=== PATIENT | male | born 1945 | race Caucasian/White ===

== ENCOUNTER 2022-11-21 18:50 | Emergency (ER) | payer OTHER, MEDICARE, SELFPAY ==
--- NOTE | ~2022-11-21 | CT_ITS ---
EXAMINATION: CT thoracic lumbar wo con DATE: 11/21/2022 19:31 INDICATION: Back pain. TECHNIQUE: Computed tomography (CT) of the thoracic and lumbar spine was performed without intravenou s contrast. Automated exposure control and iterative reconstruction technique were employed. The dose -length product was 305.25 mGy-cm. COMPARISON: None FINDINGS: CT THORACIC SPINE: There is mild emphysema. There is mild scarring at the lung apices. Calcified juana r and mediastinal lymph nodes are consistent with old granulomatous disease. There is 9 degrees dextr ocurvature of thoracic spine. Vertebral body heights and intervertebral disc heights are normal. Ther e is multilevel mild facet joint osteoarthritis. At T1-T2, there is moderate bilateral facet joint os teoarthritis. No neural foraminal stenosis. At T9-T10 and T11-T12, there is mild central canal stenos is. CT LUMBAR SPINE: There is 12 degrees levoscoliosis of lumbar spine. There is a compression fracture o f L2 with 1/5 loss of height. There is severely decreased disc height from L3-L4 through L5-S1 with e ndplate remodeling. The following disc levels are specifically discussed: L1-L2: The disc is bulging. There is mild bilateral facet joint osteoarthritis. There is mild left ne ural foraminal stenosis. There is no central canal stenosis. L2-L3: The disc is bulging. There is mild bilateral facet joint osteoarthritis. There is mild bilater al neural foraminal stenosis. There is mild central canal stenosis. L3-L4: The disc is bulging. There is severe right and moderate left facet joint osteoarthritis. There is mild bilateral neural foraminal stenosis. There is mild central canal stenosis. L4-L5: The disc is bulging. There is severe bilateral facet joint osteoarthritis. There is moderate b ilateral neural foraminal stenosis. There is mild central canal stenosis. L5-S1: The disc is bulging. There is moderate and severe left facet joint osteoarthritis. There is mo derate bilateral neural foraminal stenosis. There is mild central canal stenosis. IMPRESSION: 1. L2 compression fracture, likely acute or subacute. 2. Mild thoracic spondylosis and severe lumbar spondylosis. Reviewed, dictated and finalized at location A.
[2022-11-21 18:54] VITALS: BP 182/85; PULSE 83; RESP 14; TEMP 36.5; O2SAT 98
--- NOTE | 2022-11-21 19:24 | ED.GENADULT ---
HPI - General Adult General Chief complaint: Back Pain/Injury Stated complaint: BACK PAIN Time Seen by Provider: 11/21/22 18:53 History of Present Illness HPI narrative: 77-year-old male presented the emergency department for evaluation of lower back pain. Patient states that he was attempting to move a stationary bike and had acute onset of lower back pain. Patient denies any associated numbness or weakness. Patient has been taking Hood for pain control without significant improvement. Related Data Allergies Allergy/AdvReac Type Severity Reaction Status Date / Time nkda Allergy Unknown Uncoded 01/09/03 13:42 NA Allergy Uncoded 10/31/08 13:01 NO KNOWN DRUG ALLERGIES Allergy Y Uncoded 01/09/03 14:34 (Class Allergy) Review of Systems Review of Systems: All systems reviewed & are unremarkable except as noted in HPI and below Exam Narrative: APPEARANCE: Well appearing, no pain, no distress, well-nourished. HEAD: normocephalic, atraumatic. EYES: PERRLA/EOMI, conjunctivae clear. NOSE: Normal no drainage NECK: Supple. No adenopathy, no masses. RESPIRATORY: Airway patent, respirations nonlabored. Clear to auscultation bilaterally, no rales, rhonchi, wheezing. CARDIOVASCULAR: Regular rate and rhythm without murmurs rubs or gallops. ABDOMINAL: Soft, nontender, nondistended, normal bowel sounds MUSCULOSKELETAL: Moves all extremities. Strength/ROM intact, No edema, No calf tenderness. NEURO: Alert. Cranial nerves II through XII intact. Grossly intact SKIN: Warm, dry. Normal Color Course Course Emergency Course: 77-year-old male presented the ED for evaluation of back pain. There is a compression fracture of L2 with 1/5 loss of height. No other acute abnormalities. Patient has no neurologic abnormalities. Case was discussed with neurosurgery and they are comfortable with the plan having outpatient follow-up and wearing a back brace. Patient was provided medications for pain control and was educated on the plan for follow-up and treatment for the pain control. Patient was able to ambulate at his baseline prior to discharge. Vital Signs Vital signs: Vital Signs Temperature 97.7 F 11/21/22 18:54 Pulse Rate 83 11/21/22 18:54 Respiratory Rate 14 11/21/22 18:54 Blood Pressure 182/85 H 11/21/22 18:54 Pulse Oximetry 98 05/06/23 18:54 Oxygen Delivery Room Air 11/21/22 18:54 Temperature 97.7 F 11/21/22 18:54 Pulse Rate 68 11/21/22 19:33 Respiratory Rate 17 11/21/22 19:33 Blood Pressure 164/67 H 11/21/22 19:33 Pulse Oximetry 97 11/21/22 19:33 Oxygen Delivery Room Air 11/21/22 18:54 Medical Decision Making Differential Diagnosis Differential Diagnosis: Musculoskeletal back pain, Lumbar compression fracture, thoracic compression fracture Vital Signs Vital Signs: Vital Signs Temperature 97.7 F 11/21/22 18:54 Pulse Rate 83 11/21/22 18:54 Respiratory Rate 14 11/21/22 18:54 Blood Pressure 182/85 H 11/21/22 18:54 Pulse Oximetry 98 11/21/22 18:54 Oxygen Delivery Room Air 11/21/22 18:54 Temperature 97.7 F 11/21/22 18:54 Pulse Rate 68 11/21/22 19:33 Respiratory Rate 17 11/21/22 19:33 Blood Pressure 164/67 H 11/21/22 19:33 Pulse Oximetry 97 11/21/22 19:33 Oxygen Delivery Room Air 11/21/22 18:54 Imaging Data Radiologist's impression: Impressions Thoracic/Lumbar Spine CT 11/21/22 19:36 IMPRESSION: 1. L2 compression fracture, likely acute or subacute. 2. Mild thoracic spondylosis and severe lumbar spondylosis. Discharge Plan Discharge Clinical Impression: Strain of lumbar region Qualifiers: Encounter type: initial encounter Qualified Code(s): S39.012A - Strain of muscle, fascia and tendon of lower back, initial encounter Compression fx, lumbar spine Qualifiers: Encounter type: initial encounter Lumbar vertebra fracture level: L2 Qualified Code(s): S32.020A - Wedge compression fracture of second lumbar v
[2022-11-21] MEDS: CYCLOBENZAPRINE HCL 10 MG TABLET PO (19:31)
[2022-11-21 19:33] VITALS: BP 164/67; PULSE 68; RESP 17; O2SAT 97
--- NOTE | 2022-11-21 21:10 | PC.NURSE ---
Patient ambulated prior to discharge. Patient able to ambulate w/ moderate reported pain. States he uses walker at home
--- NOTE | 2022-11-22 10:44 | PCCCNOTE ---
Phone call received from Gina Do from [place] 72 hour notification line with questions about the ER visit. Gina able to provided identifiers, we do not have [place] for insurance demographics. Provided Gina with requested NPI, Hospital address and ICD-9 codes. Gina provides notification reference [id number]
== END 2022-11-21 21:12 | disposition home or self-care (01) ==
PROVIDERS: Emergency Provider Emergency Medicine
DX: S32.020A Wedge compression fracture of second lumbar vertebra, initial encounter for closed fracture (principal); M47.816 Spondylosis without myelopathy or radiculopathy, lumbar region; M47.814 Spondylosis without myelopathy or radiculopathy, thoracic region; X50.0XXA Overexertion from strenuous movement or load, initial encounter
CPT/HCPCS: 72128; 72131; 99284; A9270

== ENCOUNTER 2023-10-11 13:44 | Inpatient (IN) | payer MEDICARE, OTHER, SELFPAY ==
[2023-10-11] VITALS (8 sets, daily range): BP systolic 143–204; BP diastolic 71–101; PULSE 84–98; RESP 18–20; TEMP 37.4–39.1; O2SAT 93–96
--- NOTE | ~2023-10-11 | CT_ITS ---
EXAMINATION: CT abdomen pelvis wo con DATE: 10/11/2023 17:46 INDICATION: Hematuria TECHNIQUE: Computed tomography (CT) of the abdomen and pelvis was performed without intravenous contr ast. The dose-length product (DLP) was 209.35 mGy-cm. Automated exposure control and iterative recons truction technique were employed. COMPARISON: None FINDINGS: Minimal dependent atelectasis is present in the lung bases. The heart size is normal. There is a 1.5 cm cyst of the liver. The spleen, pancreas, gallbladder, and adrenal glands are normal. The re is a 2 mm nonobstructing stone of the right kidney upper pole. The left kidney is unremarkable. No stones are identified in the ureters or bladder. No hydronephrosis or hydroureter. There is marked e nlargement of the prostate. A large volume of colonic stool is present. Colonic diverticulosis is pre sent without evidence of diverticulitis. No pathologically enlarged abdominal or pelvic lymph nodes a re identified. No free intraperitoneal gas or evidence of bowel obstruction. There is severe lumbar s pondylosis. IMPRESSION: 1. Nonobstructing right nephrolithiasis. 2. Constipation. 3. Prostatomegaly. Reviewed, dictated and finalized at location F.
--- NOTE | ~2023-10-11 | XR_ITS ---
XR knee RT 3V 10/11/2023 16:22 Indication: Right knee pain Procedure: 3 views right knee Comparison: No prior studies for comparison. Findings: Moderate-severe osteoarthritis of the right knee. There is chondrocalcinosis. No significan t joint effusion. No foreign bodies. Impression: 1: Moderate-severe tricompartment osteoarthritis of the right knee. Reviewed, dictated and finalized at location B. Impression: 1: Moderate-severe tricompartment osteoarthritis of the right knee.
--- NOTE | ~2023-10-11 | XR_ITS ---
EXAMINATION: XR knee LT 3V DATE: 10/11/2023 15:15 INDICATION: Left knee pain post fall 4 days prior TECHNIQUE: Anteroposterior, oblique and crosstable lateral views of the left knee were obtained COMPARISON: None. FINDINGS: Alignment is normal. No fracture. Chondral calcinosis at the medial and lateral compartments of the knee. There is at least mild joint space narrowing the medial compartment although joint space narrow ing can be underestimated on nonweightbearing imaging. No joint effusion/layering lipohemarthrosis. S oft tissues are unremarkable. IMPRESSION: 1. No left knee joint effusion or acute osseous or mild. 2. Chondrocalcinosis at the medial lateral compartments with at least mild osteoarthritis in medial c ompartment. Reviewed, dictated and finalized at location A. IMPRESSION: 1. No left knee joint effusion or acute osseous or mild. 2. Chondrocalcinosis at the medial lateral compartments with at least mild oste oarthritis in medial compartment.
--- NOTE | ~2023-10-11 | CT_ITS ---
EXAMINATION: CT brain wo con INDICATION: Head injury COMPARISON: None TECHNIQUE: Standard unenhanced head CT. The dose-length product (DLP) was 681.00 mGy-cm. The mA was a djusted according to patient size. Iterative reconstruction technique was employed. FINDINGS: No acute intraparenchymal hemorrhage. No evidence of mass lesion. No evidence of acute infa rction. There are small lacunar infarcts in the basal ganglia. There is mild periventricular and subc ortical hypodensity probably related to small vessel ischemic disease. There is mild prominence of th e sulci and ventricles related to cerebral atrophy. Intracranial calcified cerebral atherosclerosis i s noted. No extra-axial collections. No mass effect or midline shift. Changes in the globes are likel y from ocular lens surgery. The visualized sinuses and mastoid air cells are well aerated. IMPRESSION: 1. No acute intracranial abnormality. 2. Age related findings. Reviewed, dictated and finalized at location F.
--- NOTE | ~2023-10-11 | CT_ITS ---
EXAMINATION: CT knee LT wo con DATE: 10/11/2023 16:33 INDICATION: Left knee pain post fall 4 days prior. TECHNIQUE: High resolution computed tomography (CT) of the left knee was performed without intravenou s contrast. Additional sagittal and coronal reconstructions were performed. Automated exposure contro l and iterative reconstruction technique were employed. The dose-length product was 457.94 mGy-cm. COMPARISON: Left knee radiographs dated 10/11/2023 FINDINGS: Bone alignment is normal. No fracture. Chondrocalcinosis in all 3 compartments of the knee. There is tricompartmental osteoarthritis with small marginal osteophytes in all 3 compartments of the knee and at least mild joint space narrowing at the medial and patellofemoral compartments. There is no knee joint effusion. There is diffuse muscular atrophy. Abnormal contour to the visualized distal quadrice ps muscle and tendon with attenuation of the central quadriceps tendon but without surrounding soft t issue edema which suggests possible sequela of chronic quadriceps tendon tear. IMPRESSION: 1. Chondrocalcinosis and at least mild tricompartmental osteoarthritis at the left knee. No left knee joint effusion or acute osseous abnormality. 2. Abnormal contour to the distal quadriceps muscle and tendon which suggests possible quadriceps ten don tear but without surrounding soft tissue edema to suggest acute injury. Correlate with clinical h istory. Reviewed, dictated and finalized at location A. IMPRESSION: 1. Chondrocalcinosis and at least mild tricompartmental osteoarthritis at the l eft knee. No left knee joint effusion or acute osseous abnormality. 2. Abnormal contour to the distal quadriceps muscle and tendon which suggests p ossible quadriceps tendon tear but without surrounding soft tissue edema to sug gest acute injury. Correlate with clinical history.
--- NOTE | ~2023-10-11 | CT_ITS ---
EXAMINATION: CT brain wo con DATE: 10/16/2023 15:22 INDICATION: Diplopia. TECHNIQUE: Computed tomography (CT) of the head was performed without intravenous contrast. The mA wa s adjusted according to patient size. Iterative reconstruction technique was employed. The dose-lengt h product was 605.33 mGy-cm. COMPARISON: Head CT 10/11/2023 FINDINGS: There is no intracranial hemorrhage, acute infarction, or abnormal intracranial mass lesion . There is an old infarct in the right basal ganglia and anterior limb right internal capsule. There are scattered areas of low attenuation in the cerebral white matter, which is within normal limits fo r the patient's age. The ventricles are normal in size. There is mucosal thickening in the paranasal sinuses. There is a trace left mastoid effusion. IMPRESSION: 1. 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 Reviewed, dictated and finalized at location A. IMPRESSION: 1. Old infarct involving the right basal ganglia and anterior limb right winter intern al capsule.
--- NOTE | ~2023-10-11 | XR_ITS ---
EXAMINATION: XR lumbar spine 2-3V DATE: 10/12/2023 18:10 INDICATION: Low back pain TECHNIQUE: Anteroposterior and lateral views of the lumbar spine, and cone-down lateral view of the l umbosacral junction were obtained. COMPARISON: CT, 10/11/2023 and 11/21/2022 FINDINGS: There is an approximately compression fracture of L2 with slight worsening. There is severe loss of intervertebral disc space height at L3-4, L4-5, and L5-S1. No acute fracture is identified. There is moderate to severe facet joint osteoarthritis of the mid and lower lumbar spine. Calcified a therosclerosis is noted. There appear to be changes of bilateral inguinal hernia repair. IMPRESSION: 1. Chronic L2 compression fracture with slight worsening. 2. Severe lower lumbar spondylosis. Reviewed, dictated and finalized at location F.
--- NOTE | ~2023-10-11 | US_ITS ---
EXAMINATION: US carotid duplex BI DATE: 10/12/2023 20:45 INDICATION: Transient alteration of awareness TECHNIQUE: Grayscale, color Doppler, and pulsed Doppler images of the cervical carotid arteries were obtained. The degree of vessel stenosis is placed in one of the following categories: normal, <50%, 5 0-69%, >=70% but less than near-occlusion, near-occlusion, or total occlusion. Note that percent sten osis relative to normal distal artery lumen diameter is indirectly measured from velocity measurement s as described by Alexander, et al. Radiology 2003; 229:340-346. COMPARISON: None. FINDINGS: RIGHT: The right common carotid artery (CCA) peak systolic velocity (PSV) is 79 cm/s. The right internal car otid artery (ICA) PSV is 128 cm/s. The right ICA end-diastolic velocity (EDV) is 18 cm/s. The right I CA/CCA PSV ratio is 1.9. Grayscale and color Doppler images yield an estimate of less than 50% diamet er reduction from plaque in the ICA. The external carotid artery (ECA) PSV is 149 cm/s. There is ante grade flow in the right vertebral artery. LEFT: The left CCA PSV is 70 cm/s. The left ICA PSV is 75 cm/s. The left ICA EDV is 17 cm/s. The left ICA/C CA PSV ratio is 1.1. Grayscale and color Doppler images yield an estimate of less than 50% diameter r eduction from plaque in the ICA. The ECA PSV is 80 cm/s. There is antegrade flow in the left vertebra l artery. IMPRESSION: 1. <50% stenosis in the right internal carotid artery. 2. <50% stenosis in the left internal carotid artery. Reviewed, dictated and finalized at location F.
--- NOTE | ~2023-10-11 | CT_ITS ---
EXAMINATION: CT chest abdomen pelvis wo con DATE: 10/16/2023 15:22 INDICATION: Abdominal pain. TECHNIQUE: Computed tomography (CT) of the chest, abdomen, and pelvis was performed without intraveno us contrast. Automated exposure control and iterative reconstruction technique were employed. The dos e-length product was 551.87 mGy-cm. COMPARISON: CT abdomen and pelvis 10/11/2023, thoracic spine CT 11/21/2022 FINDINGS: CHEST CT: There is moderate emphysema. There is mild atelectasis bilaterally. There is chronic scarring in the upper lobes. Calcified pulmonary nodules and calcified hilar and mediastinal lymph nodes are consiste nt with old granulomatous disease. The heart size is normal. No pericardial effusion. There is mild b ilateral gynecomastia. There is mild thoracic spondylosis. There is a chronic compression fracture of T12. ABDOMEN/PELVIS CT: There are cysts in the liver measuring up to 17 mm. The gallbladder is distended. The spleen, pancrea s, adrenal glands, and left kidney are normal. There is a 3 mm stone in right kidney. There is calcif ied atherosclerosis of the aorta and many of the other arteries. There are changes of bilateral herni a repairs. There is diverticulosis of the colon without evidence of diverticulitis. The appendix is n ormal. There are no pathologically enlarged lymph nodes. There is no free intraperitoneal fluid. Ther e is subcutaneous gas in anterior abdominal wall. The prostate is severely enlarged. There is severe lumbar spondylosis. There is a chronic compression fracture of L2. IMPRESSION: 1. Moderate emphysema. 2. Small volume of subcutaneous gas in anterior abdominal wall bilaterally, which may be from injecti ons. 3. Gallbladder distention, new from 10/11/2023, which may be secondary to fasting. Correlate with phys ical exam to exclude acute cholecystitis. Reviewed, dictated and finalized at location A. IMPRESSION: 1. Moderate emphysema. 2. Small volume of subcutaneous gas in anterior abdominal wall bilaterally, whi ch may be from injections. 3. Gallbladder distention, new from 10/11/2023, which may be secondary to fastin g. Correlate with physical exam to exclude acute cholecystitis.
--- NOTE | ~2023-10-11 | US_ITS ---
EXAMINATION: US abdomen limited DATE: 10/18/2023 12:36 INDICATION: Abdominal pain. TECHNIQUE: Multiple grayscale and Doppler ultrasound images of the abdomen were obtained. COMPARISON: CT abdomen and pelvis 10/16/2023 FINDINGS: The visualized portions of the head of the pancreas are normal. There is a 16 mm cyst in th e liver. The gallbladder is distended. No visible gallstones. No gallbladder wall thickening or sonog raphic Russell sign. There is normal flow in main portal vein. The common duct is normal and measures 4 mm. IMPRESSION: 1. Gallbladder distention, which may be secondary to fasting. Reviewed, dictated and finalized at location A.
--- NOTE | 2023-10-11 13:53 | ECG_ITS ---
Measurements Intervals [place] Rate: 90 P: 68 VT: 125 QRS: 104 QRSD: 91 T: 42 QT: 322 QTc: 394 Interpretive Statements SINUS RHYTHM POSSIBLE LEFT ATRIAL ENLARGEMENT INCOMPLETE RIGHT BUNDLE BRANCH BLOCK BORDERLINE ST-T WAVE ABNORMALITY- INFERIOR LEADS BASELINE ARTIFACT- I, III, AVR, AVL, AVF BORDERLINE ECG NO PREVIOUS ECG AVAILABLE FOR COMPARISON Electronically Signed On 10-11-2023 14:03:41 CDT by Chaka Morales D.O.
--- NOTE | 2023-10-11 14:07 | PC.NURSE ---
Pt , Eunice, was called per pt request. She states pt is not on blood thinners and didn't have issues with mobility until this AM. States she will call back with pt allergies.
[2023-10-11 15:36] LABS: Basophils Absolute Auto 0.1 K/mm3 (0.0-0.1); Basophils Percent Auto 0.7 % (0.2-1.2); Eosinophils Absolute Auto 0.1 K/mm3 (0-0.3); Eosinophils Percent Auto 1.1 % (0-4.4); Hematocrit 47.8 % (42.0-52.0); Hemoglobin 15.7 g/dL (14.0-18.0); Immature Granulocyte Absolute 0.07 K/mm3 (0.00-0.031); Immature Granulocyte Percent A 0.8 % (0-0.5); Lymphocytes Absolute Auto 0.94 K/mm3 (0.9-3.2); Lymphocytes Percent Auto 11.2 % (18.3-44.2); Mean Corpuscular HGB Conc 32.8 g/dl (32-36); Mean Corpuscular Hemoglobin 29.6 pg (26-34); Mean Corpuscular Volume 90.2 fl (80-100); Mean Platelet Volume 12.5 fl (7.4-10.4); Monocytes Percent Auto 11.5 % (2.6-8.5); Neutrophils Absolute Auto 6.3 K/mm3 (1.3-6.7); Neutrophils Percent Auto 74.7 % (45.5-73.1); Platelet Count Result 281 k/mm3 (150-375); Red Cell Distribution Width 15.5 % (11.5-14.5); White Blood Count 8.4 K/mm3 (4.5-10.0)
[2023-10-11 15:46] LABS: Alanine Aminotransferase 18 U/L (6-50); Albumin Level 3.9 g/dL (3.5-5.1); Alkaline Phosphatase 109 U/L (38-126); Anion Gap 4 mmol/L (8-16); Aspartate Amino Transferase 24 U/L (17-59); Bilirubin,Total 0.5 mg/dL (0.2-1.3); Blood Urea Nitrogen 20 mg/dL (9-20); Calcium 9.2 mg/dL (8.4-10.2); Carbon Dioxide 26 mmol/L (22-30); Chloride 105 mmol/L (98-107); Estimated CRCL calculation 71 ml/min; Estimated Glomerular Filt Rate > 60; Glucose 103 mg/dL (65-110); Potassium 3.7 mmol/L (3.4-5.0); Sodium 135 mmol/L (137-145)
--- NOTE | 2023-10-11 16:06 | ED.GENADULT ---
HPI - General Adult General Chief complaint: Fall Stated complaint: Fall History of Present Illness HPI narrative: 77-year-old male presents emergency department for evaluation of increased generalized weakness all and sore throat along with some left knee pain. Patient reports that he did have a fall on Wednesday and since Wednesday he has had decreased ability to use his left knee. Related Data Allergies Allergy/AdvReac Type Severity Reaction Status Date / Time cyclobenzaprine Allergy Unknown Verified 10/11/23 14:28 Review of Systems Review of Systems: All systems reviewed & are unremarkable except as noted in HPI and below Exam Narrative: APPEARANCE: Well appearing, no pain, no distress, well-nourished. HEAD: normocephalic, atraumatic. EYES: PERRLA/EOMI, conjunctivae clear. NOSE: Normal no drainage EARS:TMS clear with good light reflex. THROAT: Pharynx clear, no exudate. NECK: Supple. No adenopathy, no masses. RESPIRATORY: Airway patent, respirations nonlabored. Clear to auscultation bilaterally, no rales, rhonchi, wheezing. CARDIOVASCULAR: Regular rate and rhythm without murmurs rubs or gallops. ABDOMINAL: Soft, nontender, nondistended, normal bowel sounds MUSCULOSKELETAL: Disrupted quadriceps tendon on left NEURO: Alert. Cranial nerves II through XII intact. Good gait. Good coordination SKIN: Warm, dry. Normal Color PSYCHIATRIC: Normal affect/mood. Course Course Emergency Course: Patient was admitted for COVID, increased weakness and quadriceps tendon rupture Vital Signs Vital signs: Vital Signs Temperature 102.3 F H 10/11/23 13:43 Pulse Rate 95 10/11/23 13:43 Respiratory Rate 20 10/11/23 13:43 Blood Pressure 204/86 H 10/11/23 13:43 Pulse Oximetry 95 10/11/23 13:43 Oxygen Delivery Room Air 10/11/23 13:43 Temperature 99.3 F 10/11/23 17:09 Pulse Rate 86 10/11/23 19:09 Respiratory Rate 18 10/11/23 19:09 Blood Pressure 143/75 H 10/11/23 19:09 Pulse Oximetry 96 10/11/23 19:09 Oxygen Delivery Room Air 10/11/23 13:43 Medical Decision Making [facility] Narrative Medical decision making narrative: 77-year-old male presents emergency department for evaluation of left knee pain and increased generalized weakness. Patient's x-ray of the left knee showed no fracture dislocation. CT scan did showed suspected disruption the quadriceps tendon. Patient was negative for influenza RSV strep but was positive COVID. Patient did strike his head during the fall the CT head showed no acute intracranial abnormality. CT abdomen and pelvis also showed no acute abnormality. Case was discussed with the hospitalist patient was accepted for admission. Differential Diagnosis Differential Diagnosis: Subdural hematoma, intracranial abnormality, skull fracture, patellar fracture, quadriceps tendon injury, influenza, RSV, COVID, pneumonia Vital Signs Vital Signs: Vital Signs Temperature 102.3 F H 10/11/23 13:43 Pulse Rate 95 10/11/23 13:43 Respiratory Rate 20 10/11/23 13:43 Blood Pressure 204/86 H 10/11/23 13:43 Pulse Oximetry 95 10/11/23 13:43 Oxygen Delivery Room Air 10/11/23 13:43 Temperature 99.3 F 10/11/23 17:09 Pulse Rate 86 10/11/23 19:09 Respiratory Rate 18 10/11/23 19:09 Blood Pressure 143/75 H 10/11/23 19:09 Pulse Oximetry 96 10/11/23 19:09 Oxygen Delivery Room Air 10/11/23 13:43 Lab Data 10/11/23 15:16 10/11/23 15:16 Labs: Lab Results 10/11/23 10/11/23 10/11/23 Range/Units 15:15 15:16 16:06 WBC 8.4 (4.5-10.0) K/mm3 RBC 5.30 (4.6-6.20) M/mm3 Hgb 15.7 (14.0-18.0) g/dL Hct 47.8 (42.0-52.0) % MCV 90.2 (80-100) fl MCH 29.6 (26-34) pg MCHC 32.8 (32-36) g/dl RDW 15.5 H (11.5-14.5) % Plt Count 281 (150-375) k/mm3 MPV 12.5 H (7.4-10.4) fl Immature Gran % (Auto) 0.8 H (0-0.5) % Neut % (Auto) 74.7 H (45.5-73.1) % Lymph % (Auto) 11.2 L (18.
[2023-10-11 16:30] LABS: Bacteria Urine None Seen /hpf; Non Pathogenic Casts 0-2; RBC Urine 51-100 /hpf (0-2); Squamous Epithelial Cell Urine None Seen /hpf (Few); WBC Urine 0-5 /hpf (0-3)
[2023-10-11 16:47] LABS: Strep Group A RT-PCR NOT DETECTED (Negative)
[2023-10-11 16:58] LABS: Influenza A QL RT-PCR Negative (Negative); Influenza B QL RT-PCR Negative (Negative); RSV RNA, RT-PCR Negative (Negative); SARS-CoV-2 RNA PCR Positive (Negative)
[2023-10-11 17:00] LABS: Appearance Urine Clear (Clear); Color Urine Yellow (Yellow)
[2023-10-11 17:01] LABS: Bilirubin Urine Negative (Negative); Blood Urine 2+ (Negative); Glucose Urine UA Negative (Negative); Ketones Urine Negative (Negative); Leukocyte Esterase Ur Negative LEU/UL (Negative); Nitrate Urine Negative (Negative); Protein Urine 1+ mg/dL (Negative)
--- NOTE | 2023-10-11 17:07 | PC.NURSE ---
Pt reports sudden onset of dizziness and N/V. Rn entered room to find patient vomiting. MD made aware. VORB for 4mg zofran IVP stat
[2023-10-11] MEDS: ONDANSETRON INJ 4 MG/2 ML VIAL IV PUSH (17:09)
--- NOTE | 2023-10-11 17:27 | PM.IMHP ---
H&P: HPI History of Present Illness Date/Time: 10/11/23 19:00 Chief Complaint: Weakness, sore throat, left leg pain. Narrative: This is a 77-year-old male smoker who presented to the emergency department for evaluation of weakness, sore throat, and left leg pain. The patient provides the following history. On Wednesday he reports feeling lightheaded and dizzy which caused him to have a syncopal episode. He landed on his left side and hit his head on the ground without initial injuries. He was able to crawl to bed and where he has remained. Not long after the fall he developed pain in his left knee and he is having difficulties bearing weight on that leg due to pain. Overall he feels unwell with sore throat, cough productive of clear phlegm, body aches, fatigue, and generalized malaise. Additionally he reports painless hematuria but he started to pass small amounts of clots today. He has not had a fever to his knowledge. He denies headache, neck ache, sinus congestion, chest pain, pleuritic pain, hemoptysis, abdominal pain, nausea, vomiting, diarrhea, and dysuria. In the ED: Temperature has been as high as 102.3?. Blood pressures have been running high, in the 160s to 180 systolic. SpO2 has been in the mid 90s on room air. Labs were significant for WBC count of 8.4, hemoglobin 15.7, sodium 135, BUN 20, creatinine 0.60. Urine was positive for 1+ protein, 2+ blood, 51 to 100 WBC. He tested positive for SARS-CoV-[address] showed no acute findings. CT of the abdomen pelvis showed nonobstructing right nephrolithiasis and findings of constipation and prostatomegaly. Right knee x-ray showed moderate to severe tricompartment osteoarthritis. Left knee CT showed chondrocalcinosis, mild tricompartmental osteoarthritis, and an abnormal contour are to the distal quadriceps muscle and tendon which suggest possible quadriceps tear. He is being admitted in this setting Review of Systems Review of Systems: Twelve systems were reviewed and are negative except for as per HPI. [facility] Past Medical History Medical History Hypertension Osteoarthritis of knees, bilateral Tobacco dependence Social History Social History Smoking packs per day: 2 Smoking cigarettes per day: 40.0 Years smoked: 50 Smoking pack-years: 100.00 Smoking status: Current every day smoker Tobacco type: cigarettes Alcohol intake: former Do You Feel Safe in your Home?: Yes Lack of Transportation: No Lack of Food: Never True Current Housing: I Have Housing Concerned About Future Housing: No Difficulty Paying Gas/Electric Bills: No Difficulty Paying for Meds: No Currently Unemployed: No Education: High School Diploma/GED Difficulty w/ Childcare or Family Care: No Spiritual care concerns: No Meds Home Medications and Allergies Home Medications Medication Instructions Recorded Confirmed Type hydrocodone 5 mg-acetaminophen 325 1 tablet PO Q8H PRN pain #14 tabs 11/21/22 10/12/23 Rx mg tablet amlodipine 5 mg tablet 5 mg PO DAILY 10/12/23 10/12/23 History gabapentin 400 mg capsule 1,200 mg PO TID 10/12/23 10/12/23 History guaifenesin 200 mg TID 10/12/23 10/12/23 History methocarbamol 500 mg tablet 500 mg PO TID 10/12/23 10/12/23 History misoprostol 200 mcg tablet 200 mcg PO TID 10/12/23 10/12/23 History pantoprazole 40 mg tablet,delayed 40 mg PO QAM 10/12/23 10/12/23 History release theophylline 400 mg 400 mg PO DAILY 10/12/23 10/12/23 History tablet,extended release Allergies Allergy/AdvReac Type Severity Reaction Status Date / Time cyclobenzaprine Allergy Unknown Verified 10/12/23 02:32 Vital Signs Vital Signs - 24 hr 10/11/23 13:43 10/11/23 15:41 10/11/23 15:45 Temperature 102.3 F H 100.8 F H Pulse Rate 95 93 Respiratory Rate 20 20 Blood Pressure 204/86 H 174/71 H Pulse Oximetry 95 95 Oxyge
[2023-10-11 17:54] LABS: Add Urine Microscopic? YES
[2023-10-11 18:17] LABS: Creatine Kinase 95 U/L (55-170)
--- NOTE | 2023-10-11 19:47 | PC.NURSE ---
Pt , Eunice, called for update
[2023-10-12] VITALS (17 sets, daily range): BP systolic 152–185; BP diastolic 65–84; PULSE 73–160; RESP 18–22; TEMP 36.7–37.1; O2SAT 95–98; BMI 18.7
--- NOTE | 2023-10-12 | ECHO_ITS ---
Patient Info Name: Dany Atwood Age: 77 years : 1945 Gender: Male Ht: 68 in Wt: 200 lbs BSA: 2.11 m2 HR: 77 bpm BP: 157 / 73 mmHg Heart Rhythm: Sinus Rhythm Technical Quality: Good Exam Date: 10/12/2023 9:12 AM Exam Location: Echo Lab Patient Status: Outpatient Admit Date: 10/11/2023 Staff Ordering Physician: Joanne Velasco PA-C Business Test Analyst: Bryant Palomino RDCS Attending Provider: Jerel Mcrae MD Referring Physician: Krista BENNETT; Exam Type: CA echo doppler color flow Study Info Indications - syncope, elevated blood pressure Complete two-dimensional, color flow and Doppler transthoracic echocardiogram is performed. Summary 1. Complete two-dimensional, color flow and Doppler transthoracic echocardiogram is performed. 2. Left ventricular chamber dimension is normal. 3. Left ventricular systolic function is normal, estimated at 60-65%. 4. There is mildly increased left ventricular wall thickness. 5. The left ventricular diastolic function is grade I diastolic dysfunction. 6. Right ventricular systolic function is normal. 7. Left atrial chamber dimension is mildly enlarged. 8. Right atrial chamber dimension is mildly enlarged. 9. There is mild tricuspid valve regurgitation. Left Ventricle Left ventricular chamber dimension is normal. Left ventricular systolic function is normal, estimated at 60-65%. There is mildly increased left ventricular wall thickness. The left ventricular diastolic function is grade I diastolic dysfunction. Right Ventricle Right ventricular chamber dimension is normal. Right ventricular systolic function is normal. Left Atria Left atrial chamber dimension is mildly enlarged. Right Atria Right atrial chamber dimension is mildly enlarged. Atrial Septum Intact interatrial septum visualized by color flow imaging. Aortic Valve There is no aortic valve stenosis. There is no aortic valve regurgitation. There is mild aortic valve calcification. Pulmonic Valve The pulmonic valve is not well visualized. Mitral Valve There is trace mitral valve regurgitation. Tricuspid Valve There is mild tricuspid valve regurgitation. Pericardium/Pleural There is no pericardial effusion. Inferior Vena Cava Normal inferior vena cava with >50% collapse upon inspiration consistent with normal right atrial pressure, 3 mmHg. Aorta The aortic root size at the sinus of Valsalva is normal. Left Ventricular Outflow Tract Name Value Normal LVOT 2D LVOT Diameter 1.7 cm LVOT Doppler LVOT Peak Gradient 2 mmHg LVOT Mean Gradient 1 mmHg LVOT VTI 14 cm LVOT VTI/AV VTI Ratio 0.8 LVOT Stroke Volume 31 ml LVOT CO 2.4 l/min LVOT CI 1.1 l/min/m2 Pulmonic Valve Name Value Normal RVOT Doppler RVOT Peak Gradien
[2023-10-12] MEDS: ACETAMINOPHEN 325 MG TABLET 650 MG PO (00:15)
--- NOTE | 2023-10-12 03:48 | ADMGEN ---
This patient, Dany Atwood, was admitted to Medical Room 250-01. Patient/family oriented to hospital policies and general routines including ID bracelet, bed and alarms, visiting hours, pain management, procedures, bathroom and other care routines, personal items, smoking policy, room service/diet, and visiting hours. Information on how to activate the Rapid Response Team has been discussed. Patient/Family are encouraged to report perceived risks to care and to ask questions if they do not understand what they are told or what they should do.
[2023-10-12 05:58] LABS: Basophils Percent Auto 0.3 % (0.2-1.2); Eosinophils Percent Auto 0.1 % (0-4.4); Hematocrit 49.5 % (42.0-52.0); Hemoglobin 15.8 g/dL (14.0-18.0); Immature Granulocyte Absolute 0.08 K/mm3 (0.00-0.031); Immature Granulocyte Percent A 0.9 % (0-0.5); Lymphocytes Absolute Auto 1.75 K/mm3 (0.9-3.2); Lymphocytes Percent Auto 19.2 % (18.3-44.2); Mean Corpuscular HGB Conc 31.9 g/dl (32-36); Mean Corpuscular Hemoglobin 29.1 pg (26-34); Mean Corpuscular Volume 91.2 fl (80-100); Mean Platelet Volume 11.4 fl (7.4-10.4); Monocytes Absolute Auto 1.3 K/mm3 (0.1-0.6); Monocytes Percent Auto 13.7 % (2.6-8.5); Neutrophils Percent Auto 65.8 % (45.5-73.1); Platelet Count Result 232 k/mm3 (150-375); Red Blood Count 5.43 M/mm3 (4.6-6.20); Red Cell Distribution Width 15.6 % (11.5-14.5); White Blood Count 9.1 K/mm3 (4.5-10.0)
[2023-10-12 06:07] LABS: Anion Gap 7 mmol/L (8-16); Blood Urea Nitrogen 15 mg/dL (9-20); Carbon Dioxide 23 mmol/L (22-30); Chloride 106 mmol/L (98-107); Creatine Kinase 89 U/L (55-170); Estimated CRCL calculation 69 ml/min; Estimated Glomerular Filt Rate > 60; Glucose 99 mg/dL (65-110); Magnesium 2.4 mg/dL (1.6-2.3); Potassium 3.8 mmol/L (3.4-5.0); Sodium 136 mmol/L (137-145)
--- NOTE | 2023-10-12 09:25 | WPDURCON ---
Assessment and Plan Assessment and plan (1) Hematuria: Code(s): R31.9 - Hematuria, unspecified Status: Acute Assessment and Plan: Onset 1 day prior to admission. Reports hematuria has resolved at this time. CT abdomen/pelvis without contrast shows nonobstructing right renal stone. No evidence of UTI. No recent instrumentation/catheterization. Continue to monitor urine closely. Will check bladder scan to ensure he is emptying well. No indication for CBI at this time. Consider CT urogram and cystoscopy as an outpatient. (2) BPH (benign prostatic hyperplasia): Code(s): N40.0 - Benign prostatic hyperplasia without lower urinary tract symptoms Status: Acute Assessment and Plan: Awaiting bladder scan to ensure emptying well. Consider addition of tamsulosin; caution given his recent syncope and suspected hypotension. Urology Consult Note HPI Date Seen: 10/12/23 Requesting Physician: Jerel Mcrae MD Primary Care Provider: PHYSICIAN NOT ON STAFF Consult Narrative Narrative: Dany Atwood is a 77 year old male smoker with no prior urologic history who is currently admitted for syncope and is being seen in consultation for evaluation of gross hematuria. Patient states he developed gross hematuria 2 days ago with passage of small clots. He had no precipitating urinary symptoms including dysuria or incomplete emptying. He states that for years he has had a slightly weak stream and some postvoid dribbling, however this has never been bothersome to him. He denies straining to void and denies any prior issues with urinary retention. He has never seen a urologist. On arrival, a CT of his abdomen/pelvis was completed which shows 2 mm nonobstructing right renal stone without hydronephrosis as well as marked enlargement of the prostate. Urinalysis with 51-100 RBC's but no evidence of infection. WBC, hemoglobin, and hematocrit within normal limits. Creatinine stable, 0.6. He was febrile on presentation, however today remains afebrile and vital signs are stable. At the time of my evaluation, he is resting comfortably. States his urine is clear today and free of clots. States he is voiding without difficulty. He denies suprapubic pain or pressure. Review of Systems Review of Systems: All systems reviewed & are unremarkable except as noted in HPI and below PMFSH Past Medical History Medical History Hypertension Osteoarthritis of knees, bilateral Tobacco dependence Social History Social History Smoking packs per day: 2 Smoking cigarettes per day: 40.0 Years smoked: 50 Smoking pack-years: 100.00 Smoking status: Current every day smoker Tobacco type: cigarettes Alcohol intake: former Do You Feel Safe in your Home?: Yes Lack of Transportation: No Lack of Food: Never True Current Housing: I Have Housing Concerned About Future Housing: No Difficulty Paying Gas/Electric Bills: No Difficulty Paying for Meds: No Currently Unemployed: No Education: High School Diploma/GED Difficulty w/ Childcare or Family Care: No Spiritual care concerns: No Meds Home Medications and Allergies Home Medications Medication Instructions Recorded Confirmed Type hydrocodone 5 mg-acetaminophen 325 1 tablet PO Q8H PRN pain #14 tabs 11/21/22 10/12/23 Rx mg tablet amlodipine 5 mg tablet 5 mg PO DAILY 10/12/23 10/12/23 History gabapentin 400 mg capsule 1,200 mg PO TID 10/12/23 10/12/23 History guaifenesin 200 mg TID 10/12/23 10/12/23 History methocarbamol 500 mg tablet 500 mg PO TID 10/12/23 10/12/23 History misoprostol 200 mcg tablet 200 mcg PO TID 10/12/23 10/12/23 History pantoprazole 40 mg tablet,delayed 40 mg PO QAM 10/12/23 10/12/23 History release theophylline 400 mg 400 mg PO DAILY 10/12/23 10/12/23 History tablet,extended release
--- NOTE | 2023-10-12 12:01 | P.PNIM_ITS ---
Progress Note: A&P Assessment and Plan (1) Hematuria: Code(s): R31.9 - Hematuria, unspecified Status: Acute Assessment and Plan: 10/12/2023: * patient reporting hematuria with clots on admission * CT of the abdomen pelvis without contrast showed nonobstructing right renal stone, constipation, BPH * plan for bladder scan to check for urinary retention * urology following and is not recommending any CBI at this time, consider CT urogram and cystoscopy on an outpatient basis (2) Syncope: Code(s): R55 - Syncope and collapse Status: Acute Assessment and Plan: 10/12/2023: * patient reports syncopal episode on Wednesday with fall, he hit his head on the ground without any initial injury * head CT was negative for any acute intracranial process, only showed age- related changes * orthostatic blood pressures Q shift ordered * Blood pressure while lying down was 188/86 with a pulse of 98, pressure while sitting up was 178/101 with a pulse of 96, there was not a blood pressure recorded 4 standing at this time. * bilateral ultrasound carotid duplex ordered * echo ordered (3) COVID: Code(s): U07.1 - COVID-19 Status: Acute Assessment and Plan: 10/12/2023: * positive for COVID on PCR * reporting upper respiratory symptoms of productive cough, fever, body aches, fatigue, sore throat, lightheadedness, dizziness * strep was negative * influenza A and B, RSV were also negative * Currently on room air * start Mucinex, throat lozenge, and Tessalon Perles for supportive measure (4) Osteoarthritis of knees, bilateral: Code(s): M17.0 - Bilateral primary osteoarthritis of knee Status: Acute Assessment and Plan: 10/12/2023: * left knee x-ray showing no left joint effusion, revealed chondrocalcinosis at the medial lateral compartments with at least mild osteoarthritis in medial compartment * right knee x-ray shown moderate to severe tricompartment osteoarthritis * left knee differential diagnosis including gout and septic arthritis * T-max of 102.3 on arrival to the emergency room.He has been unable to move his knee and scan showing chondrocalcinosis and osteoarthritis * will check uric acid level today to check for gout * orthopedic consult (5) Injury of quadriceps tendon: Code(s): S76.109A - Unspecified injury of unspecified quadriceps muscle, fascia and tendon, initial encounter Status: Acute Assessment and Plan: 10/12/2023: * CT scan of the left knee shown chondrocalcinosis and at least mild tricompartmental osteoarthritis of the left knee, no joint effusion, Abnormal contour or to the distal quadriceps muscle and tendon which suggest possible quadriceps tendon tear but without surrounding soft tissue edema to suggest acute injury. * Patient was placed in a knee immobilizer * orthopedic surgeon consulted (6) Generalized weakness: Code(s): R53.1 - Weakness Status: Acute Assessment and Plan: 10/12/2023: * recent fall * orthopedic consult * will order PT and OT as well to evaluate treat after orthopedic evaluation. (7) Hypertension: Code(s): I10 - Essential (primary) hypertension Status: Acute Assessment and Plan: 10/12/2023: * continue amlodipine (8) Chronic back pain: Code(s): M54.9 - Dorsalgia, unspecified; G89.29 - Other chronic pain Status: Acute Assessment and Plan: 10/12/2023: * Will get x-ray of lower back as he states that has been bothering him since the fall and he
--- NOTE | 2023-10-12 12:01 | PM.IMPN ---
Progress Note: A&P Assessment and Plan (1) Hematuria: Code(s): R31.9 - Hematuria, unspecified Status: Acute Assessment and Plan: 10/12/2023: patient reporting hematuria with clots on admission CT of the abdomen pelvis without contrast showed nonobstructing right renal stone, constipation, BPH plan for bladder scan to check for urinary retention urology following and is not recommending any CBI at this time, consider CT urogram and cystoscopy on an outpatient basis (2) Syncope: Code(s): R55 - Syncope and collapse Status: Acute Assessment and Plan: 10/12/2023: patient reports syncopal episode on Wednesday with fall, he hit his head on the ground without any initial injury head CT was negative for any acute intracranial process, only showed age-related changes orthostatic blood pressures Q shift ordered Blood pressure while lying down was 188/86 with a pulse of 98, pressure while sitting up was 178/101 with a pulse of 96, there was not a blood pressure recorded 4 standing at this time. bilateral ultrasound carotid duplex ordered echo ordered (3) COVID: Code(s): U07.1 - COVID-19 Status: Acute Assessment and Plan: 10/12/2023: positive for COVID on PCR reporting upper respiratory symptoms of productive cough, fever, body aches, fatigue, sore throat, lightheadedness, dizziness strep was negative influenza A and B, RSV were also negative Currently on room air start Mucinex, throat lozenge, and Tessalon Perles for supportive measure (4) Osteoarthritis of knees, bilateral: Code(s): M17.0 - Bilateral primary osteoarthritis of knee Status: Acute Assessment and Plan: 10/12/2023: left knee x-ray showing no left joint effusion, revealed chondrocalcinosis at the medial lateral compartments with at least mild osteoarthritis in medial compartment right knee x-ray shown moderate to severe tricompartment osteoarthritis left knee differential diagnosis including gout and septic arthritis T-max of 102.3 on arrival to the emergency room.He has been unable to move his knee and scan showing chondrocalcinosis and osteoarthritis will check uric acid level today to check for gout orthopedic consult (5) Injury of quadriceps tendon: Code(s): S76.109A - Unspecified injury of unspecified quadriceps muscle, fascia and tendon, initial encounter Status: Acute Assessment and Plan: 10/12/2023: CT scan of the left knee shown chondrocalcinosis and at least mild tricompartmental osteoarthritis of the left knee, no joint effusion, Abnormal contour or to the distal quadriceps muscle and tendon which suggest possible quadriceps tendon tear but without surrounding soft tissue edema to suggest acute injury. Patient was placed in a knee immobilizer orthopedic surgeon consulted (6) Generalized weakness: Code(s): R53.1 - Weakness Status: Acute Assessment and Plan: 10/12/2023: recent fall orthopedic consult will order PT and OT as well to evaluate treat after orthopedic evaluation. (7) Hypertension: Code(s): I10 - Essential (primary) hypertension Status: Acute Assessment and Plan: 10/12/2023: continue amlodipine (8) Chronic back pain: Code(s): M54.9 - Dorsalgia, unspecified; G89.29 - Other chronic pain Status: Acute Assessment and Plan: 10/12/2023: Will get x-ray of lower back as he states that has been bothering him since the fall and he is unable to raise his legs up. No issues with bowel or bladder. Time Spent With Patient Time with patient: Greater than 35 minutes Subjective Date/time seen: 10/12/23 12:01 Interval history: This is a 77-year-old male who presented to the hospital on 10/11/2023 with complaints of weakness, sore throat, left leg pain after a syncopal episode with fall. He stated that he has felt unwell with a sore throat, productive cou
--- NOTE | 2023-10-12 13:24 | PCPTNOTE ---
Pt has an ortho consult pending. Will wait to see pt for physical therapy until ortho recommendations are made. Will follow.
--- NOTE | 2023-10-12 13:39 | PCOTNOTE ---
Pt has an ortho consult pending. Will wait to see pt for occupational therapy until ortho recommendations are made. Will follow.
--- NOTE | 2023-10-12 13:48 | PCCCNOTE ---
On 10/12/23, the student, [Kathi Wallis], provided care and completed [facility] documentation on this patient. I have reviewed the student's documentation and agree with the findings.
[2023-10-12 13:53] LABS: Uric Acid 5.8 mg/dL (3.5-8.5)
[2023-10-12] MEDS: THEOPHYLLINE ANHYDROUS 200 MG ER 24 HR CAPSULE 400 MG PO (14:35)
[2023-10-12] MEDS: GABAPENTIN 400 MG CAPSULE 1200 MG PO ×2 (14:35→17:15)
[2023-10-12] MEDS: amLODIPine BESYLATE 5 MG TABLET PO (14:35)
[2023-10-12] MEDS: BENZONATATE 100 MG CAPSULE 200 MG PO ×2 (14:35→17:15)
[2023-10-12] MEDS: guaiFENesin 600 MG/DEXTROMETHORPHAN 30 MG SR TAB 12 HR 1 TAB PO (21:40)
--- NOTE | 2023-10-12 21:58 | ECG_ITS ---
Measurements Intervals [place] Rate: 95 P: 70 NE: 118 QRS: 106 QRSD: 84 T: 51 QT: 359 QTc: 453 Interpretive Statements SINUS RHYTHM WITH SINUS ARRHYTHMIA WITH SHORT NE INTERVAL RIGHT AXIS DEVIATION POSSIBLE LEFT ATRIAL ENLARGEMENT INCOMPLETE RIGHT BUNDLE BRANCH BLOCK DELAYED PRECORDIAL R/S TRANSITION BORDERLINE ST-T WAVE ABNORMALITY- INF/LAT LEADS BASELINE ARTIFACT- V1 BORDERLINE ECG COMPARED TO ECG 10/11/2023 13:57:05 SINUS ARRHYTHMIA NOW PRESENT Electronically Signed On 10-13-2023 6:36:19 CDT by Chaka Morales D.O.
[2023-10-12] MEDS: METOPROLOL TARTRATE 25 MG TABLET PO (23:03)
[2023-10-13] VITALS (14 sets, daily range): BP systolic 96–180; BP diastolic 60–77; PULSE 74–180; RESP 18; TEMP 36.4–36.8; O2SAT 94–96
[2023-10-13] MEDS: KETOROLAC 15 MG/ML VIAL (*BKC) 30 MG IV PUSH (02:18)
[2023-10-13] MEDS: ONDANSETRON INJ 4 MG/2 ML VIAL IV PUSH ×3 (02:19→17:29)
[2023-10-13 05:48] LABS: Basophils Percent Auto 0.2 % (0.2-1.2); Eosinophils Percent Auto 0.1 % (0-4.4); Hematocrit 50.5 % (42.0-52.0); Hemoglobin 16.7 g/dL (14.0-18.0); Immature Granulocyte Absolute 0.06 K/mm3 (0.00-0.031); Immature Granulocyte Percent A 0.7 % (0-0.5); Lymphocytes Absolute Auto 1.57 K/mm3 (0.9-3.2); Lymphocytes Percent Auto 17.5 % (18.3-44.2); Mean Corpuscular HGB Conc 33.1 g/dl (32-36); Mean Corpuscular Hemoglobin 29.5 pg (26-34); Mean Corpuscular Volume 89.1 fl (80-100); Mean Platelet Volume 11.7 fl (7.4-10.4); Monocytes Absolute Auto 1.1 K/mm3 (0.1-0.6); Monocytes Percent Auto 11.7 % (2.6-8.5); Neutrophils Absolute Auto 6.2 K/mm3 (1.3-6.7); Neutrophils Percent Auto 69.8 % (45.5-73.1); Platelet Count Result 238 k/mm3 (150-375); Red Blood Count 5.67 M/mm3 (4.6-6.20)
[2023-10-13 06:03] LABS: Alanine Aminotransferase 18 U/L (6-50); Albumin Level 3.9 g/dL (3.5-5.1); Alkaline Phosphatase 102 U/L (38-126); Anion Gap 10 mmol/L (4-12); Aspartate Amino Transferase 25 U/L (17-59); Bilirubin,Total 0.7 mg/dL (0.2-1.3); Blood Urea Nitrogen 20 mg/dL (9-20); Calcium 9.3 mg/dL (8.4-10.2); Carbon Dioxide 22 mmol/L (22-30); Chloride 103 mmol/L (98-107); Estimated CRCL calculation 53 ml/min; Estimated Glomerular Filt Rate > 60; Glucose 113 mg/dL (65-110); Magnesium 2.3 mg/dL (1.6-2.3); Sodium 135 mmol/L (137-145)
--- NOTE | 2023-10-13 07:12 | P.PNIM_ITS ---
Progress Note: A&P Assessment and Plan (1) Hematuria: Code(s): R31.9 - Hematuria, unspecified Status: Acute Assessment and Plan: 10/12/2023: * patient reporting hematuria with clots on admission * CT of the abdomen pelvis without contrast showed nonobstructing right renal stone, constipation, BPH * plan for bladder scan to check for urinary retention * urology following and is not recommending any CBI at this time, consider CT urogram and cystoscopy on an outpatient basis 10/13/23: * No change * Patient not reporting hematuria at this time. (2) Syncope: Code(s): R55 - Syncope and collapse Status: Acute Assessment and Plan: 10/12/2023: * patient reports syncopal episode on Wednesday with fall, he hit his head on the ground without any initial injury * head CT was negative for any acute intracranial process, only showed age- related changes * orthostatic blood pressures Q shift ordered * Blood pressure while lying down was 188/86 with a pulse of 98, pressure while sitting up was 178/101 with a pulse of 96, there was not a blood press ure recorded 4 standing at this time. * bilateral ultrasound carotid duplex ordered * echo ordered 10/13/23: * Bilateral ultrasound carotid duplex showing less 50% stenosis bilaterally * ? vertigo, patient states that he feels like the room is spinning at times causing him to lose his orientation resulting in increased falls. * Echo showing normal LV systolic function with an estimated EF of 60-65%, grade 1 diastolic dysfunction. * PT and OT ordered (3) COVID: Code(s): U07.1 - COVID-19 Status: Acute Assessment and Plan: 10/12/2023: * positive for COVID on PCR * reporting upper respiratory symptoms of productive cough, fever, body aches, fatigue, sore throat, lightheadedness, dizziness * strep was negative * influenza A and B, RSV were also negative * Currently on room air * start Mucinex, throat lozenge, and Tessalon Perles for supportive measure 10/13/23: * Minimal symptoms * No change to current treatment plan (4) Osteoarthritis of knees, bilateral: Code(s): M17.0 - Bilateral primary osteoarthritis of knee Status: Acute Assessment and Plan: 10/12/2023: * left knee x-ray showing no left joint effusion, revealed chondrocalcinosis at the medial lateral compartments with at least mild osteoarthritis in medial compartment * right knee x-ray shown moderate to severe tricompartment osteoarthritis * left knee differential diagnosis including gout and septic arthritis * T-max of 102.3 on arrival to the emergency room.He has been unable to move his knee and scan showing chondrocalcinosis and osteoarthritis * will check uric acid level today to check for gout * orthopedic consult 10/13/23: * Uric acid level normal at 5.8 * Continue with pain control * PT and OT to eval and treat (5) Injury of quadriceps tendon: Code(s): S76.109A - Unspecified injury of unspecified quadriceps muscle, fascia and tendon, initial encounter Status: Acute Assessment and Plan: 10/12/2023: * CT scan of the left knee shown chondrocalcinosis and at least mild tricompartmental osteoarthritis of the left knee, no joint effusion, Abnormal contour or to the distal quadriceps muscle and tendon which suggest possible quadriceps tendon tear but without surrounding soft tissue edema to suggest acute injury. * Patient was placed in a knee immobilizer * orthopedic surgeon consulted 10/13/23: * Ortho feels that the ruptured quadric
--- NOTE | 2023-10-13 07:12 | PM.IMPN ---
Progress Note: A&P Assessment and Plan (1) Hematuria: Code(s): R31.9 - Hematuria, unspecified Status: Acute Assessment and Plan: 10/12/2023: patient reporting hematuria with clots on admission CT of the abdomen pelvis without contrast showed nonobstructing right renal stone, constipation, BPH plan for bladder scan to check for urinary retention urology following and is not recommending any CBI at this time, consider CT urogram and cystoscopy on an outpatient basis 10/13/23: No change Patient not reporting hematuria at this time. (2) Syncope: Code(s): R55 - Syncope and collapse Status: Acute Assessment and Plan: 10/12/2023: patient reports syncopal episode on Wednesday with fall, he hit his head on the ground without any initial injury head CT was negative for any acute intracranial process, only showed age-related changes orthostatic blood pressures Q shift ordered Blood pressure while lying down was 188/86 with a pulse of 98, pressure while sitting up was 178/101 with a pulse of 96, there was not a blood pressure recorded 4 standing at this time. bilateral ultrasound carotid duplex ordered echo ordered 10/13/23: Bilateral ultrasound carotid duplex showing less 50% stenosis bilaterally ? vertigo, patient states that he feels like the room is spinning at times causing him to lose his orientation resulting in increased falls. Echo showing normal LV systolic function with an estimated EF of 60-65%, grade 1 diastolic dysfunction. PT and OT ordered (3) COVID: Code(s): U07.1 - COVID-19 Status: Acute Assessment and Plan: 10/12/2023: positive for COVID on PCR reporting upper respiratory symptoms of productive cough, fever, body aches, fatigue, sore throat, lightheadedness, dizziness strep was negative influenza A and B, RSV were also negative Currently on room air start Mucinex, throat lozenge, and Tessalon Perles for supportive measure 10/13/23: Minimal symptoms No change to current treatment plan (4) Osteoarthritis of knees, bilateral: Code(s): M17.0 - Bilateral primary osteoarthritis of knee Status: Acute Assessment and Plan: 10/12/2023: left knee x-ray showing no left joint effusion, revealed chondrocalcinosis at the medial lateral compartments with at least mild osteoarthritis in medial compartment right knee x-ray shown moderate to severe tricompartment osteoarthritis left knee differential diagnosis including gout and septic arthritis T-max of 102.3 on arrival to the emergency room.He has been unable to move his knee and scan showing chondrocalcinosis and osteoarthritis will check uric acid level today to check for gout orthopedic consult 10/13/23: Uric acid level normal at 5.8 Continue with pain control PT and OT to eval and treat (5) Injury of quadriceps tendon: Code(s): S76.109A - Unspecified injury of unspecified quadriceps muscle, fascia and tendon, initial encounter Status: Acute Assessment and Plan: 10/12/2023: CT scan of the left knee shown chondrocalcinosis and at least mild tricompartmental osteoarthritis of the left knee, no joint effusion, Abnormal contour or to the distal quadriceps muscle and tendon which suggest possible quadriceps tendon tear but without surrounding soft tissue edema to suggest acute injury. Patient was placed in a knee immobilizer orthopedic surgeon consulted 10/13/23: Ortho feels that the ruptured quadriceps tendon is an old injury, ortho recommends a knee immobilizer and weight-bearing as tolerated on the left lower extremity PT and OT ordered Will require extensive surgery if patient is agreeable (6) Generalized weakness: Code(s): R53.1 - Weakness Status: Acute Assessment and Plan: 10/12/2023: recent fall orthopedic consult will order PT and OT as well to evaluate treat after orthopedic evaluation.
--- NOTE | 2023-10-13 08:21 | PCPTNOTE ---
Pt has an ortho consult pending. Will wait to see pt for physical therapy until ortho recommendations are made. Will follow.
[2023-10-13] MEDS: guaiFENesin 600 MG/DEXTROMETHORPHAN 30 MG SR TAB 12 HR 1 TAB PO ×2 (08:22→20:51)
[2023-10-13] MEDS: THEOPHYLLINE ANHYDROUS 200 MG ER 24 HR CAPSULE 400 MG PO (08:22)
[2023-10-13] MEDS: BENZONATATE 100 MG CAPSULE 200 MG PO ×3 (08:22→17:28)
[2023-10-13] MEDS: amLODIPine BESYLATE 5 MG TABLET PO (08:22)
[2023-10-13] MEDS: PANTOPRAZOLE 40 MG TABLET PO (08:22)
[2023-10-13] MEDS: GABAPENTIN 400 MG CAPSULE 1200 MG PO ×3 (08:22→17:28)
--- NOTE | 2023-10-13 09:50 | WPDUROPN2 ---
Progress Note: A&P Assessment and Plan (1) Hematuria: Code(s): R31.9 - Hematuria, unspecified Status: Acute Assessment and Plan: Onset 1 day prior to admission. Reports hematuria has resolved at this time. CT abdomen/pelvis without contrast shows nonobstructing right renal stone. No evidence of UTI. No recent instrumentation/catheterization. Continue to monitor urine closely. No indication for CBI at this time. Will plan for CT urogram and cystoscopy as an outpatient. (2) BPH (benign prostatic hyperplasia): Code(s): N40.0 - Benign prostatic hyperplasia without lower urinary tract symptoms Status: Acute Assessment and Plan: Random bladder scan today 139 cc. He will benefit from addition of tamsulosin but will need to monitor closely given recent syncope of which the etiology is currently being evaluated. Would discontinue if he has decline in BP or if he becomes symptomatic. Subjective Subjective Date/Time Seen: 10/13/23 09:50 Interval history: Dany feels poorly today. He is complaining of abdominal pain as well as suprapubic discomfort. He believes he last voided sometime yesterday evening but is unsure. He states his urine was dark colored but not bloody. He has not been passing clots. He denies flank pain. Complains of constipation. No nausea or vomiting. Creatinine stable, 0.8. H&H remaining stable. Review of Systems Review of Systems: All systems reviewed & are unremarkable except as noted in HPI and below Exam Narrative: General: Awake, alert, comfortable, no acute distress HEENT: Normocephalic, atraumatic, sclerae anicteric, hard of hearing Respiratory: Normal respiratory effort, no accessory muscle use Abdomen: Distented, slightly tender to palpation : nonpalpable bladder Skin: Normal coloration, warm and dry Neurologic: No focal neuro deficits noted Psychiatric: Appropriate mood and affect, judgment and insight intact Objective Data Vital Signs Vital Signs: Vital Signs - 24 hr 10/12/23 12:50 10/12/23 12:51 10/12/23 12:00 Temperature 98.3 F Pulse Rate 90 83 Respiratory Rate 20 Blood Pressure 177/68 H 177/68 H Pulse Oximetry 98 10/12/23 16:00 10/12/23 21:29 10/12/23 20:00 Temperature 98.7 F Pulse Rate 91 92 Respiratory Rate 18 Blood Pressure 154/65 H Pulse Oximetry 95 10/12/23 21:43 10/12/23 22:03 10/12/23 23:03 Temperature 98.1 F Pulse Rate 100 102 H Respiratory Rate 19 Blood Pressure 170/74 H 185/84 H Pulse Oximetry 95 10/12/23 22:15 10/12/23 20:00 10/13/23 04:52 Temperature 97.5 F L Pulse Rate 160 H 97 74 Respiratory Rate 18 Blood Pressure 185/84 H 146/65 H Pulse Oximetry 94 10/13/23 00:00 10/13/23 04:00 10/13/23 08:19 Temperature Pulse Rate 115 H 76 79 Respiratory Rate Blood Pressure 180/74 H Pulse Oximetry 96 Intake/Output Intake/Output: Intake & Output 10/10/23 10/11/23 10/12/23 10/13/23 23:59 23:59 23:59 23:59 Intake Total 290 1050 Output Total 700 250 Balance -410 800 Meds/Results Medications: Active Medications Generic Name Dose Route Start Last Admin Trade Name Freq PRN Reason Stop Dose Admin Acetaminophen 650 mg 10/11/23 23:07 10/12/23 00:15 Acetaminophen 325 Mg Tablet PO 650 mg Q6H PRN Administration Mild Pain (1-3) or Fever Amlodipine Besylate 5 mg 10/12/23 12:40 10/13/23 08:22 Amlodipine Besylate 5 Mg Tablet PO 5 mg DAILY BISI Administration Benzocaine 1 lozenge 10/12/23 12:38 Benzocaine/Menthol (*Bkc) 18 Ea Lozenge PO PRN PRN Sore Throat Benzonatate 200 mg 10/12/23 13:00 10/13/23 08:22 Benzonatate 100 Mg Capsule PO 200 mg TID BISI Administration Gabapentin 1,200 mg 10/12/23 13:00 10/13/23 08:22 Gabapentin 400 Mg Capsule PO 1,200 mg TID BISI Administration Guaifenesin/Dextromethorphan 1 tab 10/12/23 21:00 10/13/23 08:22 Guaifenesin 600 Mg/Dextromethorph
[2023-10-13] MEDS: HYDROcodone/acetaminophen (*CRX) 5-325 MG TABLET 1 TAB PO ×3 (10:33→23:11)
[2023-10-13] MEDS: methocarbamoL 500 MG TABLET PO (13:00)
[2023-10-13] MEDS: TAMSULOSIN HCL 0.4 MG CAPSULE PO (13:00)
--- NOTE | 2023-10-13 14:45 | PM.CNOR ---
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 HE ALSO HAS SEVERE DJD TO THE LEFT KNEE. HE RECENTLY HAS BEEN DIAGNOSED WITH COVID. HE IS NOT A CANDIDATE FOR SURGERY AT THIS TIME. HE WOULD REQUIRE MAJOR QUAD RECONSTRUCTION WITH ALLOGRAFT IF HE EVENTUALLY IS MEDICALLY STABLE AND WOULD WANT SURGERY. CURRENTLY I WOULD RECOMMEND A KNEE IMMOBILIZER AND HE MAY BE WEIGHT BEARING TOLERATED AND UP WITH PT. UPON DISCHARGE I WOULD RECOMMEND CONTINUE WITH PT FOR UPPER AND LOWER BODY STRENGTHENING. HE MAY BE ABLE TO USE A DEFERENT BRACE WHICH WOULD BE LESS BULKY AND WITH IMPROVED STABILITY. XRAYS SHOW MODERATE TO SEVERE DJD LEFT KNEE. HE WILL F/U NEEDED. HISTORY, EXAM AND RADIOGRAPHS REVIEWED WITH THE PATIENT. REFERRING PHYSICIAN RECORDS AND IMAGES REVIEWED. CONDITION, NATURE, ETIOLOGY AND COURSE OF NATURAL HISTORY REVIEWED. CONSERVATIVE AND OPERATIVE TREATMENT OPTIONS REVIEWED WELL THE RISKS AND BENEFITS OF EACH. History of Present Illness HPI Consult date: 10/13/23 Chief complaint: COVID,Syncope,Quadriceps Tendon Injury Narrative: DOMENICO IS HERE FOR EVALUATION OF HIS LEFT KNEE INJURY. HE STATES HE FELL ABOUT 3 WEEKS AGO AND INJURED THE LEFT KNEE. HE HAS HAD DIFFICULTY WALKING SINCE THEN. HE RECENTLY FELL AGAIN LAST WEDNESDAY AND HIS WALKING ABILITY HAS WORSENED. HE ALSO BEGAN HAVING FLU LIKE SYMPTOMS AND WAS DIAGNOSED WITH COVID AT HIS ADMISSION TO THE HOSPITAL. CURRENTLY HIS KNEE IS NOT THAT PAIN FULL WITH ATTEMPTED MOTION. HE HAS NO ABILITY TO EXTEND THE KNEE AND RENITA DIFFICULTY WALKING WITHOUT ASSISTANCE. HE DENIES ANY OTHER TRAUMA TO THE KNEE ASIDE FROM EPISODES MENTIONED ABOVE. HE DENIES ANY HIP PAIN OR ANY OTHER UPPER OR LOWER EXTREMITY PAIN. HISTORY, EXAM AND RADIOGRAPHS REVIEWED WITH THE PATIENT. REFERRING PHYSICIAN RECORDS AND IMAGES REVIEWED. CONDITION, NATURE, ETIOLOGY AND COURSE OF NATURAL HISTORY REVIEWED. CONSERVATIVE AND OPERATIVE TREATMENT OPTIONS REVIEWED WELL THE RISKS AND BENEFITS OF EACH. FORMERLY [facility] Past Medical History Medical History Chronic back pain Hypertension Osteoarthritis of knees, bilateral Tobacco dependence Social History Social History Smoking packs per day: 2 Smoking cigarettes per day: 40.0 Years smoked: 50 Smoking pack-years: 100.00 Smoking status: Current every day smoker Tobacco type: cigarettes Alcohol intake: former Do You Feel Safe in your Home?: Yes Lack of Transportation: No Lack of Food: Never True Current Housing: I Have Housing Concerned About Future Housing: No Difficulty Paying Gas/Electric Bills: No Difficulty Paying for Meds: No Currently Unemployed: No Education: High School Diploma/GED Difficulty w/ Childcare or Family Care: No Spiritual care concerns: No Meds Home Medications and Allergies Home Medications Medication Instructions Recorded Confirmed Type hydrocodone 5 mg-acetaminophen 325 1 tablet PO Q8H PRN pain #14 tabs 11/21/22 10/12/23 Rx mg tablet amlodipine 5 mg tablet 5 mg PO DAILY 10/12/23 10/12/23 History gabapentin 400 mg capsule 1,200 mg PO TID 10/12/23 10/12/23 History guaifenesin 200 mg TID 10/12/23 10/12/23 History methocarbamol 500 mg tablet 500 mg PO TID 10/12/23 10/12/23 History misoprostol 200 mcg tablet 200 mcg PO TID 10/12/23 10/12/23 History pantoprazole 40 mg tablet,delayed 40 mg PO QAM 10/12/23 10/12/23 History release theophylline 400 mg 400 mg
[2023-10-13] MEDS: methocarbamoL 500 MG TABLET 1000 MG PO (17:28)
--- NOTE | 2023-10-13 20:12 | ECG_ITS ---
Measurements Intervals [place] Rate: 170 P: [place]: 0 QRS: 102 QRSD: 88 T: 33 QT: 282 QTc: 475 Interpretive Statements ATRIAL FIBRILLATION WITH RAPID VENTRICULAR RESPONSE DELAYED PRECORDIAL R/S TRANSITION BORDERLINE ST-T WAVE ABNORMALITY- INFERIOR LEADS BASELINE ARTIFACT- I, II, III, AVR, AVL, AVF, V1-V2 ABNORMAL ECG COMPARED TO ECG 10/12/2023 22:10:43 ATRIAL FIBRILLATION NOW PRESENT Electronically Signed On 10-14-2023 6:25:45 CDT by Chaka Morales D.O.
--- NOTE | 2023-10-13 20:42 | P.PNCROSS_ITS ---
Event Note Event Note Event Note: Cross Coverage 20:30 - Per nursing staff, HR in the 100-170s. Appears as AFib on instructional materials director. EKG obtained, showed AFib RVR, possible right ventricular hypertrophy, ST depression consider subendocardial injury. When compared to EKG done on 10/12/2023, AFib now present. Reviewed chart, no previous history of dysrhythmia or AFib. Here for generalized weakness, dizziness, syncopal episode, left knee pain, and sore throat. Found to have COVID, right renal stone, possible ruptured quadriceps tendon (likely old injury), and worsening chronic L2 compression fracture. Will trial metoprolol 5 mg IV P Q15 minutes x3. Start therapeutic Lovenox 56 mg Q12H. Consult to cardiology for new AFib. Diltazem 14 mg IVP q15m x2, if no further reduction with one dose of IVP dilt, will move to IMU for closer monitoring and diltiazem gtt. 00:41 - 14 mg IVP dilt given, now rate controlled in the 80's. Will start metoprolol 25 mg p.o. b.i.d., 1st dose at 1:00 a.m. No longer planning to transition to IMU.
[2023-10-13] MEDS: METOPROLOL TARTRATE INJ 5 MG/5 ML VIAL IV PUSH ×3 (20:49→22:19)
[2023-10-14] VITALS (14 sets, daily range): BP systolic 106–178; BP diastolic 53–69; PULSE 71–110; RESP 14–18; TEMP 36.7–37.2; O2SAT 94–96
[2023-10-14] MEDS: ENOXAPARIN 60 MG/0.6 ML SYRINGE 56 MG SUB-Q ×2 (00:17→11:33)
[2023-10-14] MEDS: dilTIAZem HCl INJ 25 MG/5 ML VIAL 14 MG IV PUSH (00:18)
[2023-10-14] MEDS: METOPROLOL TARTRATE 25 MG TABLET PO ×3 (01:28→21:05)
[2023-10-14] MEDS: HYDROcodone/acetaminophen (*CRX) 5-325 MG TABLET 1 TAB PO ×3 (05:00→17:49)
[2023-10-14 06:32] LABS: Basophils Percent Auto 0.1 % (0.2-1.2); Eosinophils Percent Auto 0.1 % (0-4.4); Hematocrit 46.1 % (42.0-52.0); Hemoglobin 15.5 g/dL (14.0-18.0); Immature Granulocyte Absolute 0.05 K/mm3 (0.00-0.031); Immature Granulocyte Percent A 0.6 % (0-0.5); Lymphocytes Absolute Auto 1.29 K/mm3 (0.9-3.2); Lymphocytes Percent Auto 16.2 % (18.3-44.2); Mean Corpuscular HGB Conc 33.6 g/dl (32-36); Mean Corpuscular Hemoglobin 29.7 pg (26-34); Mean Corpuscular Volume 88.3 fl (80-100); Mean Platelet Volume 11.4 fl (7.4-10.4); Monocytes Absolute Auto 0.7 K/mm3 (0.1-0.6); Monocytes Percent Auto 9.3 % (2.6-8.5); Neutrophils Absolute Auto 5.9 K/mm3 (1.3-6.7); Neutrophils Percent Auto 73.7 % (45.5-73.1); Platelet Count Result 229 k/mm3 (150-375); Red Blood Count 5.22 M/mm3 (4.6-6.20); Red Cell Distribution Width 14.5 % (11.5-14.5)
[2023-10-14 06:54] LABS: Alanine Aminotransferase 15 U/L (6-50); Albumin Level 3.3 g/dL (3.5-5.1); Alkaline Phosphatase 88 U/L (38-126); Anion Gap 5 mmol/L (4-12); Aspartate Amino Transferase 21 U/L (17-59); Bilirubin,Total 0.5 mg/dL (0.2-1.3); Blood Urea Nitrogen 32 mg/dL (9-20); Calcium 8.6 mg/dL (8.4-10.2); Carbon Dioxide 26 mmol/L (22-30); Chloride 99 mmol/L (98-107); Estimated CRCL calculation 48 ml/min; Estimated Glomerular Filt Rate > 60; Glucose 123 mg/dL (65-110); Potassium 3.7 mmol/L (3.4-5.0); Sodium 130 mmol/L (137-145)
--- NOTE | 2023-10-14 07:39 | PM.IMPN ---
Progress Note: A&P Assessment and Plan (1) Quadriceps muscle rupture: Qualifiers: Encounter type: initial encounter Laterality: left Qualified Code(s): S76.112A - Strain of left quadriceps muscle, fascia and tendon, initial encounter Code(s): S76.119A - Strain of unspecified quadriceps muscle, fascia and tendon, initial encounter Status: Acute (2) Chronic back pain: Code(s): M54.9 - Dorsalgia, unspecified; G89.29 - Other chronic pain Status: Acute (3) Hypertension: Code(s): I10 - Essential (primary) hypertension Status: Acute (4) Osteoarthritis of knees, bilateral: Code(s): M17.0 - Bilateral primary osteoarthritis of knee Status: Acute (5) BPH (benign prostatic hyperplasia): Code(s): N40.0 - Benign prostatic hyperplasia without lower urinary tract symptoms Status: Acute (6) Elevated blood pressure reading: Code(s): R03.0 - Elevated blood-pressure reading, without diagnosis of hypertension Status: Acute (7) COVID: Code(s): U07.1 - COVID-19 Status: Acute (8) Syncope: Code(s): R55 - Syncope and collapse Status: Acute (9) Injury of quadriceps tendon: Code(s): S76.109A - Unspecified injury of unspecified quadriceps muscle, fascia and tendon, initial encounter Status: Acute (10) Generalized weakness: Code(s): R53.1 - Weakness Status: Acute Plan (1) Hematuria: ?Code(s): R31.9 - Hematuria, unspecified ?Status:?Acute ?Assessment and Plan: ?10/12/2023: ?patient reporting hematuria with clots on admission ?CT of the abdomen pelvis without contrast showed nonobstructing right renal stone, constipation, BPH ?plan for bladder scan to check for urinary retention not reporting hematuria at this time Appreciate urologist consultation, plans CT urogram and cystoscopy as an outpatient. (2) Syncope: ?Code(s): R55 - Syncope and collapse ?Status:?Acute ?Assessment and Plan: 10/12/2023: ?patient reports syncopal episode on Wednesday with fall, he hit his head on the ground without any initial injury ?head CT was negative for any acute intracranial process, only showed age-related changes ?orthostatic blood pressures Q shift ordered ? Blood pressure while lying down was 188/86 with a pulse of 98, pressure while sitting up was 178/101 with a pulse of 96, there was not a blood pressure recorded 4 standing at this time. ?bilateral ultrasound carotid duplex ordered ?echo ordered 10/13/23: Bilateral ultrasound carotid duplex showing less 50% stenosis bilaterally possible vasovagal syncope patient states that he feels like the room is spinning at times causing him to lose his orientation resulting in increased falls. Echo showing normal LV systolic function with an estimated EF of 60-65%, grade 1 diastolic dysfunction. PT and OT ordered AFib RVR Patient found have AFib RVR on October 12 No history of AFib EKG shows ST depression Received Cardizem push and therapeutic dose Lovenox q.12 hour f/u echo, tsh, Consulted monotypist, follow up recommendations (3) COVID: ?Code(s): U07.1 - COVID-19 ?Status:?Acute ?Assessment and Plan: 10/12/2023: ?positive for COVID on PCR ?reporting upper respiratory symptoms of productive cough, fever, body aches, fatigue, sore throat, lightheadedness, dizziness ?strep was negative ?influenza A and B, RSV were also negative ? Currently on room air ?start Mucinex,? throat lozenge, and Tessalon Perles for supportive measure now Minimal symptoms. No change to current treatment plan (4) Osteoarthritis of knees, bilateral: ?Code(s): M17.0 - Bilateral primary osteoarthritis of knee ?Status:?Acute ?Assessment and Plan: ?10/12/2023: ?left knee x-ray showing no left joint effusion, revealed chondrocalcinosis at the medial lateral compartments with at least mild osteoarthritis in medial compartme
--- NOTE | 2023-10-14 07:53 | PM.CNCAR ---
Assessment and Plan Assessment and plan (1) Hypertension: Code(s): I10 - Essential (primary) hypertension Status: Acute Assessment and Plan: Stable. (2) Tobacco dependence: Code(s): F17.200 - Nicotine dependence, unspecified, uncomplicated Status: Acute Assessment and Plan: Counseled regarding smoking cessation. (3) COVID: Code(s): U07.1 - COVID-19 Status: Acute Assessment and Plan: Managed by hospitalist. (4) PAF (paroxysmal atrial fibrillation): Code(s): I48.0 - Paroxysmal atrial fibrillation Status: Acute Assessment and Plan: Back in sinus rhythm spontaneously. Probably due to covid infection, COPD. [id number] 5. On Metoprolol now for it. Would benefit from anticoagulation if not having any bleeding. On Lovenox currently. 10/12/23 Echo: EF 60-65%, mild LVH, grade I diastolic dysfunction, mild biatrial enlargement, mild TR. Keep on telemetry to check for recurrence. History of Present Illness History of Present Illness Consult date/time: 10/14/23 07:53 Reason For Visit: COVID,Syncope,Quadriceps Tendon Injury Narrative: 77 yr old man presented to hospital after a syncopal episode. He has a history of hypertension smoking, stroke. Reports he has been having intermittent dizziness with room spinning for 2 months, and this time he fell passing out hitting a door on his head. It was found he has covid infection, kidney stone, and went into atrial fibrillation last night. Diltiazem IV was given and then started on Metoprolol and he is back in sinus rhythm. Normally he walks with a walker short distances due to chronic back pain. He smokes 1 ppd. Denies chest pain, sob, orthopnea, PND, edema, palpitations. Review of Systems Review of Systems: All systems reviewed & are unremarkable except as noted in HPI and below Constitutional: Constitutional: Reports as per HPI, Denies chills, Reports fatigue and Denies fever(s) Cardiovascular: Cardiovascular: Reports as per HPI, Denies chest pain and Denies irregular heart rhythm Respiratory: Respiratory: Reports as per HPI and Denies dyspnea Gastrointestinal: Gastrointestinal: Reports as per HPI and Reports abdominal pain Genitourinary: Genitourinary: Reports as per HPI and Denies dysuria Musculoskeletal: Musculoskeletal: Reports as per HPI and Reports back pain Neurologic: Reports as per HPI, Reports dizziness and Reports syncope [facility] Past Medical History Medical History Chronic back pain Hypertension Osteoarthritis of knees, bilateral Tobacco dependence Social History Social History Smoking packs per day: 2 Smoking cigarettes per day: 40.0 Years smoked: 50 Smoking pack-years: 100.00 Smoking status: Current every day smoker Tobacco type: cigarettes Alcohol intake: former Do You Feel Safe in your Home?: Yes Lack of Transportation: No Lack of Food: Never True Current Housing: I Have Housing Concerned About Future Housing: No Difficulty Paying Gas/Electric Bills: No Difficulty Paying for Meds: No Currently Unemployed: No Education: High School Diploma/GED Difficulty w/ Childcare or Family Care: No Spiritual care concerns: No Meds Home Medications and Allergies Home Medications Medication Instructions Recorded Confirmed Type hydrocodone 5 mg-acetaminophen 325 1 tablet PO Q8H PRN pain #14 tabs 11/21/22 10/12/23 Rx mg tablet amlodipine 5 mg tablet 5 mg PO DAILY 10/12/23 10/12/23 History gabapentin 400 mg capsule 1,200 mg PO TID 10/12/23 10/12/23 History guaifenesin 200 mg TID 10/12/23 10/12/23 History methocarbamol 500 mg tablet 500 mg PO TID 10/12/23 10/12/23 History misoprostol 200 mcg tablet 200 mcg PO TID 10/12/23 10/12/23 History pantoprazole 40 mg tablet,delayed 40 mg PO QAM 10/12/23 10/12/23 History release theophylline 400 mg 400
[2023-10-14] MEDS: GABAPENTIN 400 MG CAPSULE 1200 MG PO ×3 (08:50→17:49)
[2023-10-14] MEDS: guaiFENesin 600 MG/DEXTROMETHORPHAN 30 MG SR TAB 12 HR 1 TAB PO ×2 (08:50→21:04)
[2023-10-14] MEDS: PANTOPRAZOLE 40 MG TABLET PO (08:50)
[2023-10-14] MEDS: methocarbamoL 500 MG TABLET PO ×2 (08:51→11:33)
[2023-10-14] MEDS: TAMSULOSIN HCL 0.4 MG CAPSULE PO (08:51)
[2023-10-14] MEDS: amLODIPine BESYLATE 5 MG TABLET PO (08:51)
[2023-10-14] MEDS: THEOPHYLLINE ANHYDROUS 200 MG ER 24 HR CAPSULE 400 MG PO (08:51)
[2023-10-14] MEDS: BENZONATATE 100 MG CAPSULE 200 MG PO ×3 (08:51→17:49)
--- NOTE | 2023-10-14 10:08 | WPDUROPN2 ---
Progress Note: A&P Assessment and Plan (1) Hematuria: Code(s): R31.9 - Hematuria, unspecified Status: Acute Assessment and Plan: Resolved. Onset 1 day prior to admission. Etiology not clear. CT abdomen/pelvis without contrast shows 2 mm nonobstructing right renal stone. No evidence of UTI. No recent instrumentation/catheterization. Continue to monitor urine closely. No indication for CBI at this time. Will plan for CT urogram and cystoscopy as an outpatient. (2) BPH (benign prostatic hyperplasia): Code(s): N40.0 - Benign prostatic hyperplasia without lower urinary tract symptoms Status: Acute Assessment and Plan: Urine output is adequate. No evidence of retention of prior bladder scans. Started on tamsulosin but will need to monitor closely given recent syncope of which the etiology is currently being evaluated. Would discontinue if he has decline in BP or if he becomes symptomatic. (3) Right renal stone: Code(s): N20.0 - Calculus of kidney Status: Acute Assessment and Plan: No indication for intervention. Annual surveillance with KUB/CHARISSE. Subjective Subjective Date/Time Seen: 10/14/23 10:08 Interval history: Reports feeling fatigued today. Had episode of Afib RVR last night. States he is voiding without difficulty and urine is clear. Urine output is adequate. Denies abdominal pain, suprapubic pressure. Creatinine stable, 0.9. WBC 8.0. Review of Systems Review of Systems: All systems reviewed & are unremarkable except as noted in HPI and below Exam Narrative: General: Awake, alert, comfortable, no acute distress HEENT: Normocephalic, atraumatic, sclerae anicteric, hard of hearing Respiratory: Normal respiratory effort, no accessory muscle use Abdomen: soft, nondistended Skin: Normal coloration, warm and dry Neurologic: No focal neuro deficits noted Psychiatric: Appropriate mood and affect, judgment and insight intact Objective Data Vital Signs Vital Signs: Vital Signs - 24 hr 10/13/23 10:37 10/13/23 12:00 10/13/23 16:00 Temperature Pulse Rate 88 94 Respiratory Rate Blood Pressure 146/77 H Pulse Oximetry 10/13/23 20:10 10/13/23 20:49 10/13/23 21:28 Temperature 98.3 F Pulse Rate 104 H 168 H 150 H Respiratory Rate 18 Blood Pressure 118/68 Pulse Oximetry 95 10/13/23 22:05 10/13/23 22:19 10/13/23 20:00 Temperature Pulse Rate 126 H 127 H 180 H Respiratory Rate Blood Pressure 96/60 L Pulse Oximetry 10/14/23 00:18 10/14/23 01:28 10/14/23 00:00 Temperature 98.0 F Pulse Rate 84 106 H 110 H Respiratory Rate 18 Blood Pressure 106/57 L Pulse Oximetry 94 10/14/23 04:00 10/14/23 04:56 10/14/23 08:47 Temperature 98.2 F Pulse Rate 76 75 71 Respiratory Rate 18 95 H Blood Pressure 108/53 L 131/65 Pulse Oximetry 96 10/14/23 08:51 Temperature Pulse Rate 71 Respiratory Rate Blood Pressure Pulse Oximetry Intake/Output Intake/Output: Intake & Output 10/11/23 10/12/23 10/13/23 10/14/23 23:59 23:59 23:59 23:59 Intake Total 290 1650 790 Output Total 700 500 250 Balance -410 1150 540 Meds/Results Medications: Active Medications Generic Name Dose Route Start Last Admin Trade Name Freq PRN Reason Stop Dose Admin Acetaminophen 650 mg 10/11/23 23:07 10/12/23 00:15 Acetaminophen 325 Mg Tablet PO 650 mg Q6H PRN Administration Mild Pain (1-3) or Fever Hydrocodone Bitart/Acetaminophen 1 tab 10/13/23 15:48 10/14/23 05:00 Hydrocodone/Acetaminophen (*Crx) 5-325 Mg Tablet PO 1 tab Q6H PRN Administration pain Amlodipine Besylate 5 mg 10/12/23 12:40 10/14/23 08:51 Amlodipine Besylate 5 Mg Tablet PO 5 mg DAILY BISI Administration Benzocaine 1 lozenge 10/12/23 12:38 Benzocaine/Menthol (*Bkc) 18 Ea Lozenge PO PRN PRN Sore Throat Benzonatate 200 mg 10/12/23 13:00 10/14/23 08:51 Benzonata
--- NOTE | 2023-10-14 14:12 | PCCCNOTE ---
On 10/14/23, the student, Kathi Wallis, provided care and completed [facility] documentation on this patient. I have reviewed the student's documentation and agree with the findings.
[2023-10-14] MEDS: methocarbamoL 500 MG TABLET 1000 MG PO (17:49)
[2023-10-14] MEDS: BENZOCAINE/MENTHOL (*BKC) 18 EA LOZENGE 1 LOZENGE PO (17:50)
[2023-10-15] VITALS (18 sets, daily range): BP systolic 115–174; BP diastolic 59–118; PULSE 60–168; RESP 16–20; TEMP 36.2–37.2; O2SAT 88–97
[2023-10-15] MEDS: ENOXAPARIN 60 MG/0.6 ML SYRINGE 56 MG SUB-Q ×2 (00:09→12:16)
[2023-10-15] MEDS: HYDROcodone/acetaminophen (*CRX) 5-325 MG TABLET 1 TAB PO ×3 (01:57→21:00)
[2023-10-15] MEDS: ONDANSETRON INJ 4 MG/2 ML VIAL IV PUSH (03:00)
[2023-10-15 05:40] LABS: Basophils Percent Auto 0.3 % (0.2-1.2); Hematocrit 43.6 % (42.0-52.0); Hemoglobin 14.6 g/dL (14.0-18.0); Immature Granulocyte Absolute 0.06 K/mm3 (0.00-0.031); Lymphocytes Absolute Auto 0.98 K/mm3 (0.9-3.2); Lymphocytes Percent Auto 16.4 % (18.3-44.2); Mean Corpuscular HGB Conc 33.5 g/dl (32-36); Mean Corpuscular Hemoglobin 29.4 pg (26-34); Mean Corpuscular Volume 87.7 fl (80-100); Mean Platelet Volume 11.4 fl (7.4-10.4); Monocytes Absolute Auto 0.6 K/mm3 (0.1-0.6); Monocytes Percent Auto 9.7 % (2.6-8.5); Neutrophils Absolute Auto 4.3 K/mm3 (1.3-6.7); Neutrophils Percent Auto 72.6 % (45.5-73.1); Platelet Count Result 209 k/mm3 (150-375); Red Blood Count 4.97 M/mm3 (4.6-6.20); Red Cell Distribution Width 14.4 % (11.5-14.5)
[2023-10-15 05:58] LABS: Alanine Aminotransferase 14 U/L (6-50); Albumin Level 3.2 g/dL (3.5-5.1); Alkaline Phosphatase 85 U/L (38-126); Anion Gap 1 mmol/L (4-12); Aspartate Amino Transferase 21 U/L (17-59); Bilirubin,Total 0.4 mg/dL (0.2-1.3); Blood Urea Nitrogen 17 mg/dL (9-20); Calcium 8.4 mg/dL (8.4-10.2); Carbon Dioxide 30 mmol/L (22-30); Chloride 97 mmol/L (98-107); Estimated CRCL calculation 60 ml/min; Estimated Glomerular Filt Rate > 60; Glucose 117 mg/dL (65-110); Potassium 3.6 mmol/L (3.4-5.0); Sodium 128 mmol/L (137-145)
--- NOTE | 2023-10-15 07:49 | PM.PNCARD ---
Progress Note: A&P Assessment and Plan (1) Hypertension: Code(s): I10 - Essential (primary) hypertension Status: Acute Assessment and Plan: Stable. (2) Tobacco dependence: Code(s): F17.200 - Nicotine dependence, unspecified, uncomplicated Status: Acute Assessment and Plan: Counseled regarding smoking cessation. (3) COVID: Code(s): U07.1 - COVID-19 Status: Acute Assessment and Plan: Managed by hospitalist. (4) PAF (paroxysmal atrial fibrillation): Code(s): I48.0 - Paroxysmal atrial fibrillation Status: Acute Assessment and Plan: Back in sinus rhythm spontaneously. Probably due to covid infection, COPD. [id number] 5. On Metoprolol now for it. Would benefit from anticoagulation if not having any bleeding. On Lovenox currently. 10/12/23 Echo: EF 60-65%, mild LVH, grade I diastolic dysfunction, mild biatrial enlargement, mild TR. Keep on telemetry to check for recurrence. Upon discharge recommend changing Lovenox to Xarelto 20 mg in evening with a meal. Continue Metoprolol. Have him f/u with me 2 weeks after discharge. Will sign off. Please call with any questions. Subjective Date/time seen: 10/15/23 07:49 Interval history: Denies chest pain or sob. Exam Const: General: cooperative, healthy appearing and comfortable Orientation/consciousness: oriented to person, oriented to place and oriented to time Resp: Auscultation: clear to auscultation bilaterally, no crackles, no rales, no rhonchi and no wheezes Cardio: Rate: regular rate Rhythm: regular rhythm Heart sounds: no murmurs Peripheral pulses: dorsalis pedis present Neuro: General: oriented to person, oriented to place and oriented to time Extrem: Right lower extremity: no edema Left lower extremity: no edema Objective Data Vital Signs Vital Signs: Vital Signs - 24 hr 10/14/23 08:47 10/14/23 08:51 10/14/23 09:38 Temperature Pulse Rate 71 71 Respiratory Rate Blood Pressure 131/65 Pulse Oximetry 95 Oxygen Delivery Room Air 10/14/23 08:00 10/14/23 13:15 10/14/23 08:00 Temperature Pulse Rate 77 Respiratory Rate Blood Pressure Pulse Oximetry 96 Oxygen Delivery Room Air Room Air 10/14/23 12:00 10/14/23 16:00 10/14/23 21:05 Temperature Pulse Rate 72 74 78 Respiratory Rate Blood Pressure Pulse Oximetry Oxygen Delivery 10/14/23 21:51 10/14/23 21:20 10/14/23 20:03 Temperature 98.9 F Pulse Rate 89 89 87 Respiratory Rate 14 14 Blood Pressure 178/69 H Pulse Oximetry 94 94 Oxygen Delivery Room Air 10/15/23 00:01 10/15/23 04:03 10/15/23 06:00 Temperature 97.1 F L Pulse Rate 96 73 96 Respiratory Rate 16 Blood Pressure 159/64 H Pulse Oximetry 97 Oxygen Delivery Intake/Output Intake/Output: Intake & Output 10/12/23 10/13/23 10/14/23 10/15/23 23:59 23:59 23:59 23:59 Intake Total 290 1650 1270 550 Output Total 700 500 450 765 Balance -410 1150 820 -215 Meds/Results Medications: Active Medications Generic Name Dose Route Start Last Admin Trade Name Freq PRN Reason Stop Dose Admin Acetaminophen 650 mg 10/11/23 23:07 10/12/23 00:15 Acetaminophen 325 Mg Tablet PO 650 mg Q6H PRN Administration Mild Pain (1-3) or Fever Hydrocodone Bitart/Acetaminophen 1 tab 10/13/23 15:48 10/15/23 01:57 Hydrocodone/Acetaminophen (*Crx) 5-325 Mg Tablet PO 1 tab Q6H PRN Administration pain Amlodipine Besylate 5 mg 10/12/23 12:40 10/14/23 08:51 Amlodipine Besylate 5 Mg Tablet PO 5 mg DAILY BISI Administration Benzocaine 1 lozenge 10/12/23 12:38 10/14/23 17:50 Benzocaine/Menthol (*Bkc) 18 Ea Lozenge PO 1 lozenge PRN PRN Administration Sore Throat Benzonatate 200 mg 10/12/23 13:00 10/14/23 17:49 Benzonatate 100 Mg Capsule PO 200 mg TID BISI Administration Diltiazem HCl 14 mg 10/13/23 23:49 10/14/23 00:18 Diltiazem Hcl Inj 25
[2023-10-15] MEDS: BENZONATATE 100 MG CAPSULE 200 MG PO ×3 (08:45→18:08)
[2023-10-15] MEDS: amLODIPine BESYLATE 5 MG TABLET PO (08:45)
[2023-10-15] MEDS: GABAPENTIN 400 MG CAPSULE 1200 MG PO ×3 (08:45→18:09)
[2023-10-15] MEDS: guaiFENesin 600 MG/DEXTROMETHORPHAN 30 MG SR TAB 12 HR 1 TAB PO ×2 (08:47→21:00)
[2023-10-15] MEDS: methocarbamoL 500 MG TABLET PO ×2 (08:47→12:15)
[2023-10-15] MEDS: METOPROLOL TARTRATE 25 MG TABLET PO ×2 (08:47→21:00)
[2023-10-15] MEDS: TAMSULOSIN HCL 0.4 MG CAPSULE PO (08:48)
[2023-10-15] MEDS: PANTOPRAZOLE 40 MG TABLET PO (08:48)
[2023-10-15] MEDS: THEOPHYLLINE ANHYDROUS 200 MG ER 24 HR CAPSULE 400 MG PO (08:48)
--- NOTE | 2023-10-15 09:09 | PM.IMPN ---
Progress Note: A&P Assessment and Plan (1) Quadriceps muscle rupture: Qualifiers: Encounter type: initial encounter Laterality: left Qualified Code(s): S76.112A - Strain of left quadriceps muscle, fascia and tendon, initial encounter Code(s): S76.119A - Strain of unspecified quadriceps muscle, fascia and tendon, initial encounter Status: Acute (2) Chronic back pain: Code(s): M54.9 - Dorsalgia, unspecified; G89.29 - Other chronic pain Status: Acute (3) Hypertension: Code(s): I10 - Essential (primary) hypertension Status: Acute (4) Osteoarthritis of knees, bilateral: Code(s): M17.0 - Bilateral primary osteoarthritis of knee Status: Acute (5) BPH (benign prostatic hyperplasia): Code(s): N40.0 - Benign prostatic hyperplasia without lower urinary tract symptoms Status: Acute (6) Elevated blood pressure reading: Code(s): R03.0 - Elevated blood-pressure reading, without diagnosis of hypertension Status: Acute (7) COVID: Code(s): U07.1 - COVID-19 Status: Acute (8) Syncope: Code(s): R55 - Syncope and collapse Status: Acute (9) Injury of quadriceps tendon: Code(s): S76.109A - Unspecified injury of unspecified quadriceps muscle, fascia and tendon, initial encounter Status: Acute (10) Generalized weakness: Code(s): R53.1 - Weakness Status: Acute Plan (1) Hematuria: ?Code(s): R31.9 - Hematuria, unspecified ?Status:?Acute ?Assessment and Plan: ?10/12/2023: ?patient reporting hematuria with clots on admission ?CT of the abdomen pelvis without contrast showed nonobstructing right renal stone, constipation, BPH ?plan for bladder scan to check for urinary retention not reporting hematuria at this time Appreciate urologist consultation, plans CT urogram and cystoscopy as an outpatient. (2) Syncope: ?Code(s): R55 - Syncope and collapse ?Status:?Acute ?Assessment and Plan: 10/12/2023: ?patient reports syncopal episode on Wednesday with fall, he hit his head on the ground without any initial injury ?head CT was negative for any acute intracranial process, only showed age-related changes ?orthostatic blood pressures Q shift ordered ? Blood pressure while lying down was 188/86 with a pulse of 98, pressure while sitting up was 178/101 with a pulse of 96, there was not a blood pressure recorded 4 standing at this time. ?bilateral ultrasound carotid duplex ordered ?echo ordered 10/13/23: Bilateral ultrasound carotid duplex showing less 50% stenosis bilaterally possible vasovagal syncope patient states that he feels like the room is spinning at times causing him to lose his orientation resulting in increased falls. Echo showing normal LV systolic function with an estimated EF of 60-65%, grade 1 diastolic dysfunction. PT and OT ordered Patient still has intermittent lightheadedness. Patient is found have orthostatic hypotension Will add midodrine 5 mg t.i.d. p.o. Hyponatremia Sodium is trending down, today 128. On admission, sodium 135 Unclear etiology Consult automatic beam warper tender for evaluation treatment AFib RVR Patient found have AFib RVR on October 12 No history of AFib EKG shows ST depression Received Cardizem push and therapeutic dose Lovenox q.12 hour f/u echo, tsh, Consulted silk folder, follow up recommendations 10/14: Now patient has sinus rhythm, patient is on metoprolol 25 mg q.12 hours p.o., xeralto 20 mg daily p.o. (3) COVID: ?Code(s): U07.1 - COVID-19 ?Status:?Acute ?Assessment and Plan: 10/12/2023: ?positive for COVID on PCR ?reporting upper respiratory symptoms of productive cough, fever, body aches, fatigue, sore throat, lightheadedness, dizziness ?strep was negative ?influenza A and B, RSV were also negative ? Currently on room air ?start Mucinex,? throat lozenge, and Tessalon Perles for supportive measure now Minim
--- NOTE | 2023-10-15 09:18 | PM.DS ---
DS: Admitting Diagnosis Discharge Date 10/15/23 Admitting Diagnosis (1) Quadriceps muscle rupture: ?Qualifiers: ?Encounter type:?initial encounter??Laterality:?left? Qualified Code(s):?S76.112A - Strain of left quadriceps muscle, fascia and tendon, initial encounter ?Code(s): S76.119A - Strain of unspecified quadriceps muscle, fascia and tendon, initial encounter ?Status:?Acute (2) Chronic back pain: ?Code(s): M54.9 - Dorsalgia, unspecified; G89.29 - Other chronic pain ?Status:?Acute (3) Hypertension: ?Code(s): I10 - Essential (primary) hypertension ?Status:?Acute (4) Osteoarthritis of knees, bilateral: ?Code(s): M17.0 - Bilateral primary osteoarthritis of knee ?Status:?Acute (5) BPH (benign prostatic hyperplasia): ?Code(s): N40.0 - Benign prostatic hyperplasia without lower urinary tract symptoms ?Status:?Acute (6) Elevated blood pressure reading: ?Code(s): R03.0 - Elevated blood-pressure reading, without diagnosis of hypertension ?Status:?Acute (7) COVID: ?Code(s): U07.1 - COVID-19 ?Status:?Acute (8) Syncope: ?Code(s): R55 - Syncope and collapse ?Status:?Acute (9) Injury of quadriceps tendon: ?Code(s): S76.109A - Unspecified injury of unspecified quadriceps muscle, fascia and tendon, initial encounter ?Status:?Acute (10) Generalized weakness: ?Code(s): R53.1 - Weakness ?Status:?Acute DS: Discharge Diagnosis Discharge Diagnosis (1) Quadriceps muscle rupture: Qualifiers: Encounter type: initial encounter Laterality: left Qualified Code(s): S76.112A - Strain of left quadriceps muscle, fascia and tendon, initial encounter Code(s): S76.119A - Strain of unspecified quadriceps muscle, fascia and tendon, initial encounter Status: Acute (2) Chronic back pain: Code(s): M54.9 - Dorsalgia, unspecified; G89.29 - Other chronic pain Status: Acute (3) Hypertension: Code(s): I10 - Essential (primary) hypertension Status: Acute (4) Osteoarthritis of knees, bilateral: Code(s): M17.0 - Bilateral primary osteoarthritis of knee Status: Acute (5) BPH (benign prostatic hyperplasia): Code(s): N40.0 - Benign prostatic hyperplasia without lower urinary tract symptoms Status: Acute (6) Elevated blood pressure reading: Code(s): R03.0 - Elevated blood-pressure reading, without diagnosis of hypertension Status: Acute (7) COVID: Code(s): U07.1 - COVID-19 Status: Acute (8) Syncope: Code(s): R55 - Syncope and collapse Status: Acute (9) Injury of quadriceps tendon: Code(s): S76.109A - Unspecified injury of unspecified quadriceps muscle, fascia and tendon, initial encounter Status: Acute (10) Generalized weakness: Code(s): R53.1 - Weakness Status: Acute DS: Summary Hospital Course Hospital Course: Per H&P, This is a 77-year-old male smoker who presented to the emergency department for evaluation of weakness, sore throat, and left leg pain. The patient provides the following history. On Wednesday he reports feeling lightheaded and dizzy which caused him to have a syncopal episode. He landed on his left side and hit his head on the ground without initial injuries. He was able to crawl to bed and where he has remained. Not long after the fall he developed pain in his left knee and he is having difficulties bearing weight on that leg due to pain. Overall he feels unwell with sore throat, cough productive of clear phlegm, body aches, fatigue, and generalized malaise. Additionally he reports painless hematuria but he started to pass small amounts of clots today. He has not had a fever to his knowledge. He denies headache, neck ache, sinus congestion, chest pain, pleuritic pain, hemoptysis, abdominal pain, nausea, vomiting, diarrhea, and dysuria. In the ED: Temperature has been as high as 102.3?. Blood
--- NOTE | 2023-10-15 09:35 | WPDUROPN2 ---
Progress Note: A&P Assessment and Plan (1) Hematuria: Code(s): R31.9 - Hematuria, unspecified Status: Acute Assessment and Plan: Resolved. Onset 1 day prior to admission. CT abdomen/pelvis without contrast shows 2 mm nonobstructing right renal stone. No evidence of UTI. No recent instrumentation/catheterization. Continue to monitor urine closely. No indication for CBI. Urine remains clear on lovenox and he will be transitioning to xarelto. Will plan for CT urogram and cystoscopy as an outpatient. (2) BPH (benign prostatic hyperplasia): Code(s): N40.0 - Benign prostatic hyperplasia without lower urinary tract symptoms Status: Acute Assessment and Plan: Urine output is adequate. No evidence of retention on prior bladder scans. Started on tamsulosin during admission and will continue. (3) Right renal stone: Code(s): N20.0 - Calculus of kidney Status: Acute Assessment and Plan: 2 mm nonobstructing right renal stone without hydronephrosis. No indication for intervention. Annual surveillance with KUB/CHARISSE. Subjective Subjective Date/Time Seen: 10/15/23 09:35 Interval history: Doing well today. Reports no concerns. Voiding without difficulty. Urine is clear yellow. Review of Systems Review of Systems: All systems reviewed & are unremarkable except as noted in HPI and below Exam Narrative: General: Awake, alert, comfortable, no acute distress HEENT: Normocephalic, atraumatic, sclerae anicteric, hard of hearing Respiratory: Normal respiratory effort, no accessory muscle use Abdomen: soft, nondistended Skin: Normal coloration, warm and dry Neurologic: No focal neuro deficits noted Psychiatric: Appropriate mood and affect, judgment and insight intact Objective Data Vital Signs Vital Signs: Vital Signs - 24 hr 10/14/23 09:38 10/14/23 13:15 10/14/23 12:00 Temperature Pulse Rate 72 Respiratory Rate Blood Pressure Pulse Oximetry Oxygen Delivery Room Air Room Air 10/14/23 16:00 10/14/23 21:05 10/14/23 21:51 Temperature 98.9 F Pulse Rate 74 78 89 Respiratory Rate 14 Blood Pressure 178/69 H Pulse Oximetry 94 Oxygen Delivery 10/14/23 21:20 10/14/23 20:03 10/15/23 00:01 Temperature Pulse Rate 89 87 96 Respiratory Rate 14 Blood Pressure Pulse Oximetry 94 Oxygen Delivery Room Air 10/15/23 04:03 10/15/23 06:00 Temperature 97.1 F L Pulse Rate 73 96 Respiratory Rate 16 Blood Pressure 159/64 H Pulse Oximetry 97 Oxygen Delivery Intake/Output Intake/Output: Intake & Output 10/12/23 10/13/23 10/14/23 10/15/23 23:59 23:59 23:59 23:59 Intake Total 290 1650 1270 550 Output Total 700 500 450 765 Balance -410 1150 820 -215 Meds/Results Medications: Active Medications Generic Name Dose Route Start Last Admin Trade Name Freq PRN Reason Stop Dose Admin Acetaminophen 650 mg 10/11/23 23:07 10/12/23 00:15 Acetaminophen 325 Mg Tablet PO 650 mg Q6H PRN Administration Mild Pain (1-3) or Fever Hydrocodone Bitart/Acetaminophen 1 tab 10/13/23 15:48 10/15/23 01:57 Hydrocodone/Acetaminophen (*Crx) 5-325 Mg Tablet PO 1 tab Q6H PRN Administration pain Amlodipine Besylate 5 mg 10/12/23 12:40 10/15/23 08:45 Amlodipine Besylate 5 Mg Tablet PO 5 mg DAILY BISI Administration Benzocaine 1 lozenge 10/12/23 12:38 10/14/23 17:50 Benzocaine/Menthol (*Bkc) 18 Ea Lozenge PO 1 lozenge PRN PRN Administration Sore Throat Benzonatate 200 mg 10/12/23 13:00 10/15/23 08:45 Benzonatate 100 Mg Capsule PO 200 mg TID BISI Administration Diltiazem HCl 14 mg 10/13/23 23:49 10/14/23 00:18 Diltiazem Hcl Inj 25 Mg/5 Ml Vial IV PUSH 14 mg Q15M PRN Administration Tachycardia Enoxaparin Sodium 56 mg 10/14/23 00:00 10/15/23 00:09 Enoxaparin 60 Mg/0.6 Ml Syringe SUB-Q 56 mg Q12H BISI Administration Gabapentin 1,200 m
--- NOTE | 2023-10-15 15:21 | PCNFU ---
Nutrition Follow-Up Complete: Underweight related to variable appetite as evidenced by BMI of 18.7 kg/m2. 1. Intake of 50% x 2-3 meals and of ONS. - Progressing. Intakes 5-25% with 100% Ensure Compact charted 2-3x 2. Weight to remain at or above admission weight of 55.9 kg. - Meeting goal with current weight Goal: Pt current nutrition is Heart healthy diet with Ensure Compact BID for additional 220 kcal and 9 g protein each. Nutrition recommendation: No new nutrition recommendations. Continue current nutrition care plan and orders Last recorded weight is 55.8 kg. Bowel Motility: +1 BM 10/13/28 Labs Reviewed: Alb 3.2, Na 128, Glu 117 Meds Noted: Zofran, protonix Skin: No pressure injuries Additional Notes: Intakes still remain poor. Pt to discharge to rehab/SNF when cleared Monitor appetite, PO intake, weight, labs
[2023-10-15] MEDS: methocarbamoL 500 MG TABLET 1000 MG PO (18:08)
[2023-10-15] MEDS: METOPROLOL TARTRATE INJ 5 MG/5 ML VIAL IV PUSH ×3 (22:16→22:45)
--- NOTE | 2023-10-15 23:09 | PC.NURSE ---
At 2140 patient exhibited a hear rate in the 170s bpm and flipped into a fib rhythm on the fringe weaver. This nurse assessed the patient who showed no symptoms of chest pain or any signs of distress. The heart rate continued to range from 160s to 180s until provider was called at 2155. The hospitalist Dr. Davis gave orders for a 3 time dose of Lopressor 5 mg IV every 15 min or until symptoms resolved. Blood pressure and heart rate were gathered before each administration of Lopressor to ensure safe administration of medication. After 3 doses of Lopressor the patient's heart rate ranged from 100s to [address] weaver. [address]. Davis was updated of patient condition at 2255. Dr. Davis then advised this RN to continue to monitor patient and no further intervention was necessary at this time.
[2023-10-15] MEDS: ACETAMINOPHEN 325 MG TABLET 650 MG PO (23:30)
[2023-10-16] VITALS (15 sets, daily range): BP systolic 132–170; BP diastolic 59–67; PULSE 72–110; RESP 16–18; TEMP 36.4–37.7; O2SAT 95–99
[2023-10-16 05:55] LABS: Basophils Percent Auto 0.2 % (0.2-1.2); Eosinophils Percent Auto 0.2 % (0-4.4); Hematocrit 43.9 % (42.0-52.0); Hemoglobin 14.8 g/dL (14.0-18.0); Immature Granulocyte Absolute 0.04 K/mm3 (0.00-0.031); Immature Granulocyte Percent A 0.7 % (0-0.5); Lymphocytes Percent Auto 19.7 % (18.3-44.2); Mean Corpuscular HGB Conc 33.7 g/dl (32-36); Mean Corpuscular Hemoglobin 29.2 pg (26-34); Mean Corpuscular Volume 86.6 fl (80-100); Mean Platelet Volume 11.3 fl (7.4-10.4); Monocytes Absolute Auto 0.5 K/mm3 (0.1-0.6); Monocytes Percent Auto 9.7 % (2.6-8.5); Neutrophils Absolute Auto 3.9 K/mm3 (1.3-6.7); Neutrophils Percent Auto 69.5 % (45.5-73.1); Platelet Count Result 210 k/mm3 (150-375); Red Blood Count 5.07 M/mm3 (4.6-6.20); Red Cell Distribution Width 14.6 % (11.5-14.5); White Blood Count 5.6 K/mm3 (4.5-10.0)
[2023-10-16 06:08] LABS: Alanine Aminotransferase 22 U/L (6-50); Albumin Level 3.2 g/dL (3.5-5.1); Alkaline Phosphatase 87 U/L (38-126); Anion Gap 5 mmol/L (4-12); Aspartate Amino Transferase 37 U/L (17-59); Bilirubin,Total 0.5 mg/dL (0.2-1.3); Blood Urea Nitrogen 17 mg/dL (9-20); Calcium 8.1 mg/dL (8.4-10.2); Carbon Dioxide 28 mmol/L (22-30); Chloride 97 mmol/L (98-107); Estimated CRCL calculation 69 ml/min; Estimated Glomerular Filt Rate > 60; Glucose 121 mg/dL (65-110); Potassium 3.3 mmol/L (3.4-5.0); Sodium 130 mmol/L (137-145)
--- NOTE | 2023-10-16 07:41 | PM.IMPN ---
Progress Note: A&P Assessment and Plan (1) Quadriceps muscle rupture: Qualifiers: Encounter type: initial encounter Laterality: left Qualified Code(s): S76.112A - Strain of left quadriceps muscle, fascia and tendon, initial encounter Code(s): S76.119A - Strain of unspecified quadriceps muscle, fascia and tendon, initial encounter Status: Acute (2) Chronic back pain: Code(s): M54.9 - Dorsalgia, unspecified; G89.29 - Other chronic pain Status: Acute (3) Hypertension: Code(s): I10 - Essential (primary) hypertension Status: Acute (4) Osteoarthritis of knees, bilateral: Code(s): M17.0 - Bilateral primary osteoarthritis of knee Status: Acute (5) BPH (benign prostatic hyperplasia): Code(s): N40.0 - Benign prostatic hyperplasia without lower urinary tract symptoms Status: Acute Assessment and Plan: Urine output is adequate. No evidence of retention on prior bladder scans. Started on tamsulosin during admission and will continue. (6) Elevated blood pressure reading: Code(s): R03.0 - Elevated blood-pressure reading, without diagnosis of hypertension Status: Acute (7) COVID: Code(s): U07.1 - COVID-19 Status: Acute (8) Syncope: Code(s): R55 - Syncope and collapse Status: Acute (9) Injury of quadriceps tendon: Code(s): S76.109A - Unspecified injury of unspecified quadriceps muscle, fascia and tendon, initial encounter Status: Acute (10) Generalized weakness: Code(s): R53.1 - Weakness Status: Acute Plan Abdomen pain Patient had regular quadrant pain, and patient also has nausea vomiting in the morning Patient is afebrile, f/u abd pelvis CT, need to rule out acute intraabdominal issues (1) Hematuria: ?Code(s): R31.9 - Hematuria, unspecified ?Status:?Acute ?Assessment and Plan: ?10/12/2023: ?patient reporting hematuria with clots on admission ?CT of the abdomen pelvis without contrast showed nonobstructing right renal stone, constipation, BPH ?plan for bladder scan to check for urinary retention?not reporting hematuria at this time Appreciate urologist consultation, plans? CT urogram and cystoscopy as an outpatient. (2) Syncope: ?Code(s): R55 - Syncope and collapse ?Status:?Acute ?Assessment and Plan: 10/12/2023: ?patient reports syncopal episode on Wednesday with fall, he hit his head on the ground without any initial injury ?head CT was negative for any acute intracranial process, only showed age-related changes ?orthostatic blood pressures Q shift ordered ? Blood pressure while lying down was 188/86 with a pulse of 98, pressure while sitting up was 178/101 with a pulse of 96, there was not a blood pressure recorded 4 standing at this time. ?bilateral ultrasound carotid duplex ordered ?echo ordered10/13/23: Bilateral ultrasound carotid duplex showing less 50% stenosis bilaterally possible vasovagal syncope patient states that he feels like the room is spinning at times causing him to lose his orientation resulting in increased falls. Echo showing normal LV systolic function with an estimated EF of 60-65%, grade 1 diastolic dysfunction. Orthostatic hypotension PT and OT ordered Patient still has intermittent lightheadedness.? Patient is found have orthostatic hypotension Will add midodrine 5 mg t.i.d. p.o. Hyponatremia Sodium is trending down, today 128.? On admission, sodium 135 Unclear etiology Follow-up urine osmolarity, serum osmolarity, urine sodium level Sodium 2 g b.i.d. p.o. Consult engineer remote control diesel for evaluation treatment, appreciate engineer remote control diesel consultation AFib RVR Patient found have AFib RVR on October 12 No history of AFib EKG shows ST depression Received Cardizem push and therapeutic dose Lovenox q.12 hour f/u echo, tsh, Consulted air hammer stripper, follow up recommendations 10/14:? Now patient has sinus rhythm, patient is on met
--- NOTE | 2023-10-16 08:16 | PM.PNCARD ---
Progress Note: A&P Assessment and Plan (1) Hypertension: Code(s): I10 - Essential (primary) hypertension Status: Acute Assessment and Plan: High yesterday, better now. Increase Metoprolol Tartate 50 mg BID. (2) Tobacco dependence: Code(s): F17.200 - Nicotine dependence, unspecified, uncomplicated Status: Acute Assessment and Plan: Counseled regarding smoking cessation. (3) COVID: Code(s): U07.1 - COVID-19 Status: Acute Assessment and Plan: Managed by hospitalist. (4) PAF (paroxysmal atrial fibrillation): Code(s): I48.0 - Paroxysmal atrial fibrillation Status: Acute Assessment and Plan: Back in sinus rhythm spontaneously. Probably due to covid infection, COPD. [id number] 5. On Metoprolol now for it. Would benefit from anticoagulation if not having any bleeding. On Lovenox currently. 10/12/23 Echo: EF 60-65%, mild LVH, grade I diastolic dysfunction, mild biatrial enlargement, mild TR. Keep on telemetry to check for recurrence. Had transient recurrence of atrial fib last night 10/15/23. Increase Metoprolol Tartate 50 mg BID. Upon discharge recommend changing Lovenox to Xarelto 20 mg in evening with a meal. Continue Metoprolol. Have him f/u with me 2 weeks after discharge. Subjective Date/time seen: 10/16/23 08:16 Interval history: Denies chest pain or sob. Reports right lower abdominal pain especially after coughing. Exam Const: General: cooperative, healthy appearing and comfortable Orientation/consciousness: oriented to person, oriented to place and oriented to time Resp: Auscultation: clear to auscultation bilaterally, no crackles, no rales, no rhonchi and no wheezes Cardio: Rate: regular rate Rhythm: regular rhythm Heart sounds: no murmurs Peripheral pulses: dorsalis pedis present Neuro: General: oriented to person, oriented to place and oriented to time Extrem: Right lower extremity: no edema Left lower extremity: no edema Objective Data Vital Signs Vital Signs: Vital Signs - 24 hr 10/15/23 08:42 10/15/23 14:00 10/15/23 18:10 Temperature 98 F Pulse Rate 80 Respiratory Rate 18 Blood Pressure 115/61 159/59 H Pulse Oximetry 96 Oxygen Delivery Room Air Oxygen Flow Rate 10/15/23 12:00 10/15/23 16:00 10/15/23 20:04 Temperature 98.1 F Pulse Rate 76 92 98 Respiratory Rate 16 Blood Pressure 160/65 H Pulse Oximetry 93 Oxygen Delivery Oxygen Flow Rate 10/15/23 21:00 10/15/23 21:00 10/15/23 20:01 Temperature Pulse Rate 78 78 98 Respiratory Rate 16 Blood Pressure Pulse Oximetry 93 Oxygen Delivery Room Air Oxygen Flow Rate 10/15/23 22:10 10/15/23 22:16 10/15/23 22:31 Temperature 98.9 F Pulse Rate 61 168 H 132 H Respiratory Rate 20 Blood Pressure 144/81 H Pulse Oximetry 88 L Oxygen Delivery Oxygen Flow Rate 10/15/23 22:45 10/16/23 00:05 10/16/23 04:00 Temperature Pulse Rate 122 H 110 H 72 Respiratory Rate Blood Pressure Pulse Oximetry Oxygen Delivery Oxygen Flow Rate 10/16/23 05:32 10/15/23 21:55 Temperature 97.6 F Pulse Rate 73 Respiratory Rate 18 Blood Pressure 132/63 Pulse Oximetry 99 94 Oxygen Delivery Nasal Cannula Oxygen Flow Rate 2 Intake/Output Intake/Output: Intake & Output 10/13/23 10/14/23 10/15/23 10/16/23 23:59 23:59 23:59 23:59 Intake Total 1650 1270 3040 300 Output Total 547 471 4790 500 Balance 7418 133 7657 -200 Meds/Results Medications: Active Medications Generic Name Dose Route Start Last Admin Trade Name Freq PRN Reason Stop Dose Admin Acetaminophen 650 mg 10/11/23 23:07 10/15/23 23:30 Acetaminophen 325 Mg Tablet PO 650 mg Q6H PRN Administration Mild Pain (1-3) or Fever Hydrocodone Bitart/Acetaminophen 1 tab 10/13/23 15:48 10/15/23 21:00 Hydrocodone/Acetaminophen (*Crx) 5-325 Mg Tablet PO 1 tab Q6H PRN Administration pain Amlodipine B
--- NOTE | 2023-10-16 09:04 | PM.CNNEP ---
Assessment and Plan Assessment and plan (1) Hyponatremia: Code(s): E87.1 - Hypo-osmolality and hyponatremia Status: Acute Assessment and Plan: the patient has low sodium. According to his history it does not appear to be a chronic issue. It was mildly low when he was admitted then progressively dropped to 128 yesterday and now is back up to 130. he did have a normal sodium back in 2001. That is the only past record I can find. low sodium can be caused by cancer he does not have any evidence of this right now. I suggest that he remain up-to-date with his cancer screening. Lung disease can cause hyponatremia. He does smoke. Will check a chest x-ray. Brain disease can cause COVID as well. He did have a mild stroke a few years ago but no persistent symptoms except for tinnitus in the left ear. CT of the brain was negative this admission. Medicines can do this. He is on pantoprazole and has been on this as an outpatient we should try switching to Pepcid. Narcotics can do this as well. He has been getting these and his sodium has been dropping. He probably needs the pain meds because he has significant pain from the stones. So will keep the meds going and we can initiate a fluid restriction to keep the sodium from dropping. His TSH is normal adrenal insufficiency can cause low sodium. Will check a cortisol level. (2) Hypertension: Code(s): I10 - Essential (primary) hypertension Status: Acute Assessment and Plan: Patient has longstanding hypertension. He was on amlodipine for this. Patient was said to have orthostatic hypotension. The nurse told me his blood pressure dropped from 170-150. Looking at the records however it looks like the blood pressure was 155/65 sitting, then 150/118 standing, and then 174/70 lying. over the course of the hospitalization, it looks like his blood pressures range from about 115 to 204 the last 2 times a blood pressure was close to normal his posture was lying and sitting but those were on different days. we need to establish whether this is really orthostatic hypotension or whether this could be just supine hypertension related to aging, and chronic hypertension. Will check lying then sitting then standing blood pressures and check pulse at the same time. Will try to mobilize the patient if he gets lightheaded they can check his blood pressure again. If his blood pressure only dropps by 20 in general, then we can aim for a supine blood pressure of around 140 so that when he gets up it is around 120. He may need to get to this goal gradually as an outpatient. To avoid things that would exacerbate a drop in blood pressure on standing, avoid medicines such as antidepressant, nitrites, blood pressure pills, short-acting blood pressure medications. He should stay well hydrated. If the drop in blood pressure is worse then we can try stockings. I do not think we need to use midodrine right now as the drop is not big enough to make him symptomatic. We can also check a cortisol level and a serum protein electrophoresis to look for other causes of hypotension (3) Right renal stone: Code(s): N20.0 - Calculus of kidney Status: Acute Assessment and Plan: urology is following the patient (4) PAF (paroxysmal atrial fibrillation): Code(s): I48.0 - Paroxysmal atrial fibrillation Status: Acute Assessment and Plan: heart rate is running below 100 (5) Tobacco dependence: Code(s): F17.200 - Nicotine dependence, unspecified, uncomplicated Status: Acute Assessment and Plan: encouraged to stop smoking History of Present Illness Reason for Consult Consult date: 10/16/23 Chief Complaint Chief complaint: COVID,Syncope,Quadriceps Tendon Injury History of Present Illness Narrative: Dany is a very pleasant 77-year-old gentleman who has multiple medical problems including
[2023-10-16] MEDS: GABAPENTIN 400 MG CAPSULE 1200 MG PO ×3 (09:30→17:30)
[2023-10-16] MEDS: methocarbamoL 500 MG TABLET PO ×2 (09:30→13:03)
[2023-10-16] MEDS: SODIUM CHLORIDE 1 GM TABLET 2 GM PO ×2 (09:30→17:30)
[2023-10-16] MEDS: guaiFENesin 600 MG/DEXTROMETHORPHAN 30 MG SR TAB 12 HR 1 TAB PO ×2 (09:31→21:28)
[2023-10-16] MEDS: THEOPHYLLINE ANHYDROUS 200 MG ER 24 HR CAPSULE 400 MG PO (09:31)
[2023-10-16] MEDS: TAMSULOSIN HCL 0.4 MG CAPSULE PO (09:31)
[2023-10-16] MEDS: BENZONATATE 100 MG CAPSULE 200 MG PO ×3 (09:31→17:31)
[2023-10-16] MEDS: PANTOPRAZOLE 40 MG TABLET PO (09:32)
[2023-10-16] MEDS: METOPROLOL TARTRATE 50 MG TAB PO ×2 (09:32→21:28)
[2023-10-16] MEDS: amLODIPine BESYLATE 5 MG TABLET PO (09:32)
[2023-10-16] MEDS: ENOXAPARIN 60 MG/0.6 ML SYRINGE 56 MG SUB-Q (13:03)
[2023-10-16] MEDS: hydrALAZINE HCL 20 MG/ML VIAL 10 MG IV PUSH (14:04)
--- NOTE | 2023-10-16 16:31 | PCPTNOTE ---
The patient refused treatment at this time. He stated that he is in too much pain to participate in therapy at this time. He continued to say that if the pain in his abdomen doesn't get better he will be done with therapy. Patient was educated on the benefits of participating in therapy and he continued to refuse treatment. RN notified. Will continue per PT plan of care.
[2023-10-16] MEDS: methocarbamoL 500 MG TABLET 1000 MG PO (17:31)
[2023-10-16] MEDS: HYDROcodone/acetaminophen (*CRX) 5-325 MG TABLET 1 TAB PO (18:13)
[2023-10-16 18:52] LABS: Sodium Urine Random 46 meq/L
[2023-10-16 18:55] LABS: Urea Random Urine 848 MG/DL
[2023-10-16 18:56] LABS: Sodium Urine Random 47 meq/L
[2023-10-17] VITALS (17 sets, daily range): BP systolic 157–191; BP diastolic 60–75; PULSE 75–118; RESP 16–22; TEMP 36.2–38.7; O2SAT 94–98
[2023-10-17] MEDS: ENOXAPARIN 60 MG/0.6 ML SYRINGE 56 MG SUB-Q ×2 (00:17→11:34)
[2023-10-17] MEDS: HYDROcodone/acetaminophen (*CRX) 5-325 MG TABLET 1 TAB PO ×4 (00:18→21:42)
[2023-10-17] MEDS: ONDANSETRON INJ 4 MG/2 ML VIAL IV PUSH ×4 (01:46→22:00)
[2023-10-17 05:49] LABS: Basophils Percent Auto 0.2 % (0.2-1.2); Hematocrit 44.2 % (42.0-52.0); Hemoglobin 14.9 g/dL (14.0-18.0); Immature Granulocyte Absolute 0.06 K/mm3 (0.00-0.031); Immature Granulocyte Percent A 0.9 % (0-0.5); Lymphocytes Absolute Auto 1.12 K/mm3 (0.9-3.2); Lymphocytes Percent Auto 17.1 % (18.3-44.2); Mean Corpuscular HGB Conc 33.7 g/dl (32-36); Mean Corpuscular Hemoglobin 29.3 pg (26-34); Mean Corpuscular Volume 86.8 fl (80-100); Mean Platelet Volume 11.3 fl (7.4-10.4); Monocytes Absolute Auto 0.6 K/mm3 (0.1-0.6); Neutrophils Absolute Auto 4.8 K/mm3 (1.3-6.7); Neutrophils Percent Auto 72.8 % (45.5-73.1); Platelet Count Result 229 k/mm3 (150-375); Red Blood Count 5.09 M/mm3 (4.6-6.20); Red Cell Distribution Width 14.6 % (11.5-14.5); White Blood Count 6.6 K/mm3 (4.5-10.0)
[2023-10-17 06:02] LABS: Alanine Aminotransferase 63 U/L (6-50); Albumin Level 3.1 g/dL (3.5-5.1); Alkaline Phosphatase 90 U/L (38-126); Anion Gap 10 mmol/L (4-12); Aspartate Amino Transferase 102 U/L (17-59); Bilirubin,Total 0.6 mg/dL (0.2-1.3); Blood Urea Nitrogen 16 mg/dL (9-20); Calcium 8.2 mg/dL (8.4-10.2); Carbon Dioxide 21 mmol/L (22-30); Chloride 101 mmol/L (98-107); Estimated CRCL calculation 69 ml/min; Estimated Glomerular Filt Rate > 60; Glucose 106 mg/dL (65-110); Potassium 3.1 mmol/L (3.4-5.0); Sodium 132 mmol/L (137-145)
--- NOTE | 2023-10-17 08:28 | PM.IMPN ---
Progress Note: A&P Assessment and Plan (1) Quadriceps muscle rupture: Qualifiers: Encounter type: initial encounter Laterality: left Qualified Code(s): S76.112A - Strain of left quadriceps muscle, fascia and tendon, initial encounter Code(s): S76.119A - Strain of unspecified quadriceps muscle, fascia and tendon, initial encounter Status: Acute (2) Chronic back pain: Code(s): M54.9 - Dorsalgia, unspecified; G89.29 - Other chronic pain Status: Acute (3) Hypertension: Code(s): I10 - Essential (primary) hypertension Status: Acute (4) Osteoarthritis of knees, bilateral: Code(s): M17.0 - Bilateral primary osteoarthritis of knee Status: Acute (5) BPH (benign prostatic hyperplasia): Code(s): N40.0 - Benign prostatic hyperplasia without lower urinary tract symptoms Status: Acute Assessment and Plan: Urine output is adequate. No evidence of retention on prior bladder scans. Started on tamsulosin during admission and will continue. (6) Elevated blood pressure reading: Code(s): R03.0 - Elevated blood-pressure reading, without diagnosis of hypertension Status: Acute (7) COVID: Code(s): U07.1 - COVID-19 Status: Acute (8) Syncope: Code(s): R55 - Syncope and collapse Status: Acute (9) Injury of quadriceps tendon: Code(s): S76.109A - Unspecified injury of unspecified quadriceps muscle, fascia and tendon, initial encounter Status: Acute (10) Generalized weakness: Code(s): R53.1 - Weakness Status: Acute Plan Abdomen pain Patient had rt lower quadrant pain, and patient also had nausea vomiting in the morning 10/15 Patient is afebrile, f/u abd pelvis CT, need to rule out acute intraabdominal issues CT did not revealed acute appendicitis, but found out gallbladder nursing home, need to rule out acute cholecystitis Patient is afebrile over the night, white blood cell 6600, patient still has nausea vomiting severe right lower quadrant pain today 10/16 Consult general surgeon for evaluation treatment Hematuria: ?Code(s): R31.9 - Hematuria, unspecified ?Status:?Acute ?Assessment and Plan: ?10/12/2023: ?patient reporting hematuria with clots on admission ?CT of the abdomen pelvis without contrast showed nonobstructing right renal stone, constipation, BPH ?plan for bladder scan to check for urinary retention?not reporting hematuria at this time Appreciate urologist consultation, plans? CT urogram and cystoscopy as an outpatient. Syncope: ?Code(s): R55 - Syncope and collapse ?Status:?Acute ?Assessment and Plan: 10/12/2023: ?patient reports syncopal episode on Wednesday with fall, he hit his head on the ground without any initial injury ?head CT was negative for any acute intracranial process, only showed age-related changes ?orthostatic blood pressures Q shift ordered ? Blood pressure while lying down was 188/86 with a pulse of 98, pressure while sitting up was 178/101 with a pulse of 96, there was not a blood pressure recorded 4 standing at this time. ?bilateral ultrasound carotid duplex ordered ?echo ordered10/13/23: Bilateral ultrasound carotid duplex showing less 50% stenosis bilaterally possible vasovagal syncope patient states that he feels like the room is spinning at times causing him to lose his orientation resulting in increased falls. Echo showing normal LV systolic function with an estimated EF of 60-65%, grade 1 diastolic dysfunction. Orthostatic hypotension PT and OT ordered Patient still has intermittent lightheadedness.? Patient is found have orthostatic hypotension Will add midodrine 5 mg t.i.d. p.o. Patient declined orthostatic hypotension checking today 10/16 Hyponatremia Sodium is trending down, today 128.? On admission, sodium 135 Unclear etiology Follow-up urine osmolarity, serum osmolarity, urine sodium level Sodium 2 g b.i.d. p.o. Consul
--- NOTE | 2023-10-17 09:50 | PM.PNNEP ---
Progress Note: A&P Assessment and Plan (1) Hyponatremia: Code(s): E87.1 - Hypo-osmolality and hyponatremia Status: Acute Assessment and Plan: the patient has low sodium. According to his history it does not appear to be a chronic issue. Urine sodium is 47 urine and serum osmolality and serum protein electrophoresis are pending cortisol level is 27 [address] chest shows emphysema no history of cancer the patient is on pantoprazole and hydrocodone. The former is chronic so is unlikely to be causing the hyponatremia. We can try switching to Pepcid. The latter may be playing a role. Continue fluid restriction as his numbers are improving. (2) Hypertension: Code(s): I10 - Essential (primary) hypertension Status: Acute Assessment and Plan: Patient has longstanding hypertension. He was on amlodipine for this. Systolic blood pressure 150-170 on amlodipine 5mg per day, losartan 50mg per day, and metoprolol 50mg Q 12. Will change metoprolol to succinate. Will keep overall doses the same until we find out how the orthostatic blood pressure readings are. Will change the metoprolol to be given at bedtime pain may be driving some of the blood pressure as well. Deconditioning and aging may be driving some of the orthostasis if present. Orthostatic blood pressure readings have not been done yet. At this point keep trying to mobilize the patient. His belly pain limits this to some degree. Continue to avoid medicines such as antidepressant, nitrites, centrally acting bp meds, short-acting blood pressure medications. He should stay well hydrated. If the drop in blood pressure is worse then we can try stockings. I think we can hold the midodrine and use it as needed. (3) Right renal stone: Code(s): N20.0 - Calculus of kidney Status: Acute Assessment and Plan: urology is following the patient (4) PAF (paroxysmal atrial fibrillation): Code(s): I48.0 - Paroxysmal atrial fibrillation Status: Acute Assessment and Plan: heart rate is running below 100 (5) Tobacco dependence: Code(s): F17.200 - Nicotine dependence, unspecified, uncomplicated Status: Acute Assessment and Plan: encouraged to stop smoking Subjective Date/time seen: 10/17/23 09:50 Interval history: Mr. Atwood feels about the same. Still has groin pain. Review of Systems Cardiovascular: Cardiovascular: Reports no additional cardiovascular complaints Respiratory: Respiratory: Reports no additional respiratory complaints Gastrointestinal: Gastrointestinal: Reports no additional gastrointestinal complaints Genitourinary: Genitourinary: Reports no additional male genitourinary complaints Exam Narrative: WDWN in NAD skin no rash head ncat lungs clear bilaterally cor reg no rub abd BS+ tender in right lower quadrant and soft with an ice bag applied to the painful area. ext no edema. Objective Data Vital Signs Vital Signs: Vital Signs - 24 hr 10/16/23 12:00 10/16/23 14:00 10/16/23 16:00 Temperature 99.9 F H Pulse Rate 81 79 90 Respiratory Rate 18 Blood Pressure 170/67 H Pulse Oximetry 97 Oxygen Delivery Oxygen Flow Rate 10/16/23 17:33 10/16/23 20:26 10/16/23 21:28 Temperature 97.6 F Pulse Rate 89 97 97 Respiratory Rate 16 Blood Pressure 162/59 H 165/63 H Pulse Oximetry 97 Oxygen Delivery Oxygen Flow Rate 10/16/23 21:15 10/16/23 20:00 10/17/23 00:00 Temperature Pulse Rate 97 82 Respiratory Rate Blood Pressure Pulse Oximetry 97 Oxygen Delivery Nasal Cannula Oxygen Flow Rate 2 10/17/23 04:00 10/17/23 05:02 10/17/23 08:19 Temperature 97.6 F Pulse Rate 75 77 Respiratory Rate 16 Blood Pressure 157/70 H Pulse Oximetry 96 94 Oxygen Delivery Nasal Cannula Oxygen Flow Rate 2 Intake/Output Intake/Ou
--- NOTE | 2023-10-17 09:56 | PCPTNOTE ---
The patient refused treatment at this time. He stated that he is in too much pain and doesn't want to get up and move. Will continue per PT plan of care.
[2023-10-17] MEDS: KCL 20 MEQ/SW 100 ML 100 ML 50 MEQ IVPB (09:57)
[2023-10-17] MEDS: GABAPENTIN 400 MG CAPSULE 1200 MG PO (12:41)
[2023-10-17] MEDS: methocarbamoL 500 MG TABLET PO (12:42)
[2023-10-17] MEDS: BENZONATATE 100 MG CAPSULE 200 MG PO (12:42)
[2023-10-17] MEDS: MIDODRINE HCL 2.5 MG TABLET 5 MG PO (12:43)
--- NOTE | 2023-10-17 13:15 | PCOTNOTE ---
Attempted to see pt for Occupational Therapy treatment. Pt declined to participate due to increase abdominal right side pain and nausea despite being given pain medication recently. Pt was educated on the importance of participation for increase strengthening/independence with daily occupations, to which pt continues to declined participation in therapy. Will continue per poc duration/frequency tomorrow.
--- NOTE | 2023-10-17 15:39 | PCPTNOTE ---
Patient refused physical therapy treatment at this time due to increased pain in his right abdomen. RN notified. Will continue per PT plan of care.
--- NOTE | 2023-10-17 16:48 | PM.CNGS ---
Assessment and Plan Assessment and plan (1) Abdominal pain, RLQ: Code(s): R10.31 - Right lower quadrant pain Status: Acute Assessment and Plan: Nothing on CT scan to suggest cause for RLQ pain. No guarding or peritoneal signs. Could be unusual presentation biliary colic but seems unlikely. (2) Vomiting: Qualifiers: Vomiting type: bilious vomiting Nausea presence: with nausea Qualified Code(s): R11.14 - Bilious vomiting Code(s): R11.10 - Vomiting, unspecified Status: Acute Assessment and Plan: yesterday morning. none today. Not eating well last 2 days. (3) Abnormal CT scan, gallbladder: Code(s): R93.2 - Abnormal findings on diagnostic imaging of liver and biliary tract Status: Acute Assessment and Plan: GB distended on CT, was not on admitting CT. Could be due to current illnesses, fasting but not sure. No signs cholecystitis or gallstones on CT. Will get U/S gallbladder tomorrow. (4) Chronic anticoagulation: Code(s): Z79.01 - senior living (current) use of anticoagulants Status: Acute Assessment and Plan: therapeutic dose lovenox (5) COVID: Code(s): U07.1 - COVID-19 Status: Acute Assessment and Plan: tested positive with symptoms on admission 10/11/23 (6) Tobacco dependence: Code(s): F17.200 - Nicotine dependence, unspecified, uncomplicated Status: Chronic (7) Atrial fibrillation with rapid ventricular response: Code(s): I48.91 - Unspecified atrial fibrillation Status: Acute Assessment and Plan: currently in SR with occas PVC's (8) BPH (benign prostatic hyperplasia): Code(s): N40.0 - Benign prostatic hyperplasia without lower urinary tract symptoms Status: Acute Assessment and Plan: Urology has seen. On tamsulosin (9) Hyponatremia: Code(s): E87.1 - Hypo-osmolality and hyponatremia Status: Acute Assessment and Plan: on fluid restriction, heart healthy diet. Not eating much today or yesterday. History of Present Illness Consult details Consult date: 10/17/23 Reason for consult: abdominal pain Requesting physician: Monse Rebolledo MD Narrative: Patient is a 77 yo man who came to the ER on 10/10 due to feeling poorly and having left knee pain from a syncopal episode and fall suffered 2 days earlier on 10/09/23. His generalized symptoms included cough, weakness, generalized body aches, sore throat, fatigue, and malaise. CT of his knee showed severe arthritis but no fracture. Possible quadriceps tendon rupture was suggested. Patient also had some painless hematuria. Orthopedics eval feel this is an old quadriceps tendon injury and patient is in knee immobilizer. Urology has seen for hematuria. It seems to have stopped and they will evaluate him further for this as an outpatient. He had AfibRVR and is on a therapeutic dose of lovenox. He is a long time heavy smoker. Yesterday, the patient began complaining of RLQ abd pain and had some emesis then. This was in the morning. He was noted to have RLQ tenderness so noncontrast CT scan of chest/abdomen/pelvis was done. Appendix was normal but gallbladder was more distended than on admitting CT scan. I was asked to see the patient regarding possible biliary disease as the cause of his RLQ pain due to the distension of the GB seen on CT yesterday. He denies having any upper abdominal pain or any postprandial abdominal pain. His is currently on fluid restriction diet for low Na+. He ate well 10/12- 10/14 but poorly yesterday (had emesis too) and so far today. Review of Systems Review of Systems: All systems reviewed & are unremarkable except as noted in HPI and below (HPI) [facility] Past Medical History Medical History Chronic back pain Hypertension Osteoarthritis of knees, bilateral Tobacco dependence Social History Social History (Reviewed 10/17/23 @ 17:14 by Tom
--- NOTE | 2023-10-17 18:40 | PC.NURSE ---
patient unable to tolerate PO medications at this time. Provider notified, new orders received.
[2023-10-17] MEDS: METOPROLOL TARTRATE INJ 5 MG/5 ML VIAL IV PUSH (18:50)
[2023-10-17] MEDS: hydrALAZINE HCL 20 MG/ML VIAL IV PUSH (18:51)
--- NOTE | 2023-10-17 19:08 | PM.PNCARD ---
Progress Note: A&P Assessment and Plan (1) Hypertension: Code(s): I10 - Essential (primary) hypertension Status: Acute Assessment and Plan: High. Increase Metoprolol Succinate 100 mg daily. On Losartan and Amlodipine. Hydralazine IV prn. Continue to monitor. (2) Tobacco dependence: Code(s): F17.200 - Nicotine dependence, unspecified, uncomplicated Status: Chronic Assessment and Plan: Counseled regarding smoking cessation. (3) COVID: Code(s): U07.1 - COVID-19 Status: Acute Assessment and Plan: Managed by hospitalist. (4) PAF (paroxysmal atrial fibrillation): Code(s): I48.0 - Paroxysmal atrial fibrillation Status: Acute Assessment and Plan: Back in sinus rhythm spontaneously. Probably due to covid infection, COPD. [id number] 5. On Metoprolol now for it. Would benefit from anticoagulation if not having any bleeding. On Lovenox currently. 10/12/23 Echo: EF 60-65%, mild LVH, grade I diastolic dysfunction, mild biatrial enlargement, mild TR. Keep on telemetry to check for recurrence. Had transient recurrence of atrial fib on 10/15/23. On Metoprolol Succinate 100 mg daily. Upon discharge recommend changing Lovenox to Xarelto 20 mg in evening with a meal. Continue Metoprolol. Subjective Date/time seen: 10/17/23 19:08 Interval history: Denies chest pain or sob. Reports right lower abdominal pain. Exam Const: General: cooperative, healthy appearing and comfortable Orientation/consciousness: oriented to person, oriented to place and oriented to time Resp: Auscultation: clear to auscultation bilaterally, no crackles, no rales, no rhonchi and no wheezes Cardio: Rate: regular rate Rhythm: regular rhythm Heart sounds: no murmurs Peripheral pulses: dorsalis pedis present GI: GI Palp: Yes abdominal tenderness and Yes Soft to palpation Neuro: General: oriented to person, oriented to place and oriented to time Extrem: Right lower extremity: no edema Left lower extremity: no edema Objective Data Vital Signs Vital Signs: Vital Signs - 24 hr 10/16/23 20:26 10/16/23 21:28 10/16/23 21:15 Temperature 97.6 F Pulse Rate 97 97 Respiratory Rate 16 Blood Pressure 165/63 H Pulse Oximetry 97 97 Oxygen Delivery Nasal Cannula Oxygen Flow Rate 2 10/16/23 20:00 10/17/23 00:00 10/17/23 04:00 Temperature Pulse Rate 97 82 75 Respiratory Rate Blood Pressure Pulse Oximetry Oxygen Delivery Oxygen Flow Rate 10/17/23 05:02 10/17/23 08:19 10/17/23 08:03 Temperature 97.6 F Pulse Rate 77 83 Respiratory Rate 16 Blood Pressure 157/70 H Pulse Oximetry 96 94 Oxygen Delivery Nasal Cannula Oxygen Flow Rate 2 10/17/23 12:01 10/17/23 16:00 10/17/23 16:20 Temperature 97.2 F L Pulse Rate 84 90 Respiratory Rate 22 H Blood Pressure 182/69 H 181/60 H Pulse Oximetry 98 Oxygen Delivery Oxygen Flow Rate 10/17/23 16:22 10/17/23 18:50 Temperature Pulse Rate 111 H Respiratory Rate Blood Pressure 191/71 H Pulse Oximetry Oxygen Delivery Oxygen Flow Rate Intake/Output Intake/Output: Intake & Output 10/14/23 10/15/23 10/16/23 10/17/23 23:59 23:59 23:59 23:59 Intake Total 1270 3040 300 270 Output Total 450 1765 700 375 Balance 820 1275 -400 -105 Meds/Results Medications: Active Medications Generic Name Dose Route Start Last Admin Trade Name Monalisa PRN Reason Stop Dose Admin Acetaminophen 650 mg 10/11/23 23:07 10/15/23 23:30 Acetaminophen 325 Mg Tablet PO 650 mg Q6H PRN Administration Mild Pain (1-3) or Fever Hydrocodone Bitart/Acetaminophen 1 tab 10/13/23 15:48 10/17/23 12:37 Hydrocodone/Acetaminophen (*Crx) 5-325 Mg Tablet PO 1 tab Q6H PRN Administration pain Amlodipine Besylate 5 mg 10/12/23 12:40 10/17/23 18:35 Amlodipine Besylate 5 Mg Tablet PO Not Given DAILY BISI Benzocaine 1 lozenge 10/12/23 12:38 10/14/23 17:
[2023-10-17] MEDS: METOPROLOL SUCCINATE EXT REL 100 MG TABCR PO (21:42)
[2023-10-17] MEDS: ACETAMINOPHEN 325 MG TABLET 650 MG PO (21:42)
[2023-10-18] VITALS (12 sets, daily range): BP systolic 124–148; BP diastolic 52–59; PULSE 60–93; RESP 14–17; TEMP 36.5–36.8; O2SAT 90–95
[2023-10-18] MEDS: ENOXAPARIN 60 MG/0.6 ML SYRINGE 56 MG SUB-Q ×2 (00:29→12:16)
[2023-10-18 05:43] LABS: Basophils Percent Auto 0.1 % (0.2-1.2); Hematocrit 44.5 % (42.0-52.0); Hemoglobin 14.8 g/dL (14.0-18.0); Immature Granulocyte Absolute 0.11 K/mm3 (0.00-0.031); Immature Granulocyte Percent A 1.1 % (0-0.5); Lymphocytes Absolute Auto 0.87 K/mm3 (0.9-3.2); Lymphocytes Percent Auto 8.9 % (18.3-44.2); Mean Corpuscular HGB Conc 33.3 g/dl (32-36); Mean Corpuscular Hemoglobin 29.1 pg (26-34); Mean Corpuscular Volume 87.6 fl (80-100); Mean Platelet Volume 11.1 fl (7.4-10.4); Monocytes Absolute Auto 0.7 K/mm3 (0.1-0.6); Monocytes Percent Auto 6.9 % (2.6-8.5); Neutrophils Absolute Auto 8.1 K/mm3 (1.3-6.7); Platelet Count Result 245 k/mm3 (150-375); Red Blood Count 5.08 M/mm3 (4.6-6.20); White Blood Count 9.8 K/mm3 (4.5-10.0)
[2023-10-18 05:56] LABS: Alanine Aminotransferase 65 U/L (6-50); Albumin Level 3.1 g/dL (3.5-5.1); Alkaline Phosphatase 90 U/L (38-126); Anion Gap 11 mmol/L (4-12); Aspartate Amino Transferase 71 U/L (17-59); Bilirubin,Total 0.7 mg/dL (0.2-1.3); Blood Urea Nitrogen 17 mg/dL (9-20); Calcium 8.2 mg/dL (8.4-10.2); Carbon Dioxide 19 mmol/L (22-30); Chloride 102 mmol/L (98-107); Estimated CRCL calculation 69 ml/min; Estimated Glomerular Filt Rate > 60; Glucose 107 mg/dL (65-110); Potassium 3.7 mmol/L (3.4-5.0); Sodium 132 mmol/L (137-145)
[2023-10-18] MEDS: HYDROcodone/acetaminophen (*CRX) 5-325 MG TABLET 1 TAB PO ×3 (06:30→21:43)
--- NOTE | 2023-10-18 07:36 | PM.PNCARD ---
Progress Note: A&P Assessment and Plan (1) Hypertension: Code(s): I10 - Essential (primary) hypertension Status: Acute Assessment and Plan: High. Probably exacerbated by pain. On Metoprolol Succinate 100 mg daily. On Losartan and Amlodipine. Hydralazine IV prn. Stop Metoprolol to start Sotalol. Increase Losartan 100 mg daily. Continue to monitor. (2) Tobacco dependence: Code(s): F17.200 - Nicotine dependence, unspecified, uncomplicated Status: Chronic Assessment and Plan: Counseled regarding smoking cessation. (3) COVID: Code(s): U07.1 - COVID-19 Status: Acute Assessment and Plan: Managed by hospitalist. (4) PAF (paroxysmal atrial fibrillation): Code(s): I48.0 - Paroxysmal atrial fibrillation Status: Acute Assessment and Plan: Back in sinus rhythm back having recurrences. Probably due to covid infection, COPD. [id number] 5. On Metoprolol now for it. Would benefit from anticoagulation if not having any bleeding. On Lovenox currently. 10/12/23 Echo: EF 60-65%, mild LVH, grade I diastolic dysfunction, mild biatrial enlargement, mild TR. Keep on telemetry to check for recurrence. Had transient recurrence of atrial fib on 10/15/23. On Metoprolol Succinate 100 mg daily. Stop Metoprolol. 10/18/23 Start Sotalol 80 mg every 12 hours for recurrent atrial fibrillation. Check QT interval 1-2 hours post each dose of Sotalol. Upon discharge recommend changing Lovenox to Xarelto 20 mg in evening with a meal. Continue Metoprolol. Subjective Date/time seen: 10/18/23 07:36 Interval history: Denies chest pain or sob. Reports right lower abdominal pain and had chills. Exam Const: General: cooperative, healthy appearing and comfortable Orientation/consciousness: oriented to person, oriented to place and oriented to time Resp: Auscultation: clear to auscultation bilaterally, no crackles, no rales, no rhonchi and no wheezes Cardio: Rate: regular rate Rhythm: regular rhythm Heart sounds: no murmurs Peripheral pulses: dorsalis pedis present GI: GI Palp: Yes abdominal tenderness and Yes Soft to palpation Neuro: General: oriented to person, oriented to place and oriented to time Extrem: Right lower extremity: no edema Left lower extremity: no edema Objective Data Vital Signs Vital Signs: Vital Signs - 24 hr 10/17/23 08:19 10/17/23 08:03 10/17/23 12:01 Temperature Pulse Rate 83 84 Respiratory Rate Blood Pressure Pulse Oximetry 94 Oxygen Delivery Nasal Cannula Oxygen Flow Rate 2 10/17/23 16:00 10/17/23 16:20 10/17/23 16:22 Temperature 97.2 F L Pulse Rate 90 Respiratory Rate 22 H Blood Pressure 182/69 H 181/60 H 191/71 H Pulse Oximetry 98 Oxygen Delivery Oxygen Flow Rate 10/17/23 18:50 10/17/23 16:03 10/17/23 21:13 Temperature 99.5 F Pulse Rate 111 H 89 105 H Respiratory Rate 16 Blood Pressure 185/75 H Pulse Oximetry 95 Oxygen Delivery Oxygen Flow Rate 10/17/23 21:27 10/17/23 21:42 10/17/23 21:42 Temperature 101.7 F H 101.7 F H Pulse Rate 117 H Respiratory Rate Blood Pressure Pulse Oximetry Oxygen Delivery Oxygen Flow Rate 10/17/23 21:00 10/17/23 20:00 10/17/23 22:42 Temperature 100.5 F H Pulse Rate 118 H Respiratory Rate Blood Pressure Pulse Oximetry 95 Oxygen Delivery Nasal Cannula Oxygen Flow Rate 2 10/18/23 00:04 10/18/23 04:00 10/18/23 06:00 Temperature 97.9 F Pulse Rate 93 76 77 Respiratory Rate 16 Blood Pressure 148/59 H Pulse Oximetry 95 Oxygen Delivery Oxygen Flow Rate Intake/Output Intake/Output: Intake & Output 10/15/23 10/16/23 10/17/23 10/18/23 23:59 23:59 23:59 23:59 Intake Total 3040 300 270 390 Output Total 1765 700 375 350 Balance 1275 -400 -105 40 Meds/Results Medications: Active Medications Generic Name Dose Route Start Last Admin Trade Name Freq PRN Reason Stop Dose A
--- NOTE | 2023-10-18 07:41 | ECG_ITS ---
Measurements Intervals [place] Rate: 68 P: 64 SC: 125 QRS: 68 QRSD: 89 T: 88 QT: 437 QTc: 466 Interpretive Statements SINUS RHYTHM POSSIBLE LEFT ATRIAL ENLARGEMENT [-0.1mV P WAVE IN V1/V2] POSSIBLE RIGHT VENTRICULAR CONDUCTION DELAY [RSR (QR) IN V1/V2] COMPARED TO ECG 10/13/2023 20:28:08 SINUS RHYTHM NOW PRESENT Electronically Signed On 10-19-2023 8:43:02 CDT by Joshua Alexander M.D.
--- NOTE | 2023-10-18 09:31 | P.PNNP_ITS ---
Progress Note: A&P Assessment and Plan (1) Hyponatremia: Code(s): E87.1 - Hypo-osmolality and hyponatremia Status: Acute Assessment and Plan: * no reported history (but no previous labs to compare to) * it is possible he may have a chronic component to his low sodium * he does have several risk factors: * COPD/emphysema * PPI use * pain * narcotics * COVID * evaluation to date: * TSH okay * cortisol acceptable * CT of brain unremarkable * CT of chest with emphysema * no reported history of cancer * serum/urine somo and protein electrophresis pending * sodium improving if not stable * on fluid restriction * also intermittently on salt tabs * may need to consider low dose lasix but hold this for now * follow trend of sodium levels (2) Hypertension: Code(s): I10 - Essential (primary) hypertension Status: Chronic Assessment and Plan: * better control at this time * however, note issues with syncope on admission * midodrine PRN * follow trend of hemodynamics (3) Right renal stone: Code(s): N20.0 - Calculus of kidney Status: Acute Assessment and Plan: * Urology recommendations noted * plan outpatient follow-up (4) COVID: Code(s): U07.1 - COVID-19 Status: Acute Assessment and Plan: * postive testing in ER * however, remains on room air * supportive therapy Not much else to add -- will continue to follow from a distance. Subjective Date/time seen: 10/18/23 09:31 Interval history: Follow-up for acute hyponatremia (presumably). Chart reviewed -- assuming care from Dr. Ellison; continues to voice ongoing abdominal pain localized to the right lower quadrant; otherwise, no apparent distress noted; sodium has remains relatively stable with current interventions/therapy; no issues/events overnight or earlier this morning. Exam Narrative: General: elderly male in NAD Heart: normal S1 and S2; no rub Lungs: clear anteriorly Abdomen: soft, +TTP in RLQ; positive bowel sounds Extremities: no cyanosis or clubbing; no edema Skin: warm and dry Objective Data Vital Signs Vital Signs: Vital Signs Temp Pulse Resp BP Pulse Ox O2 Del Method O2 Flow Rate 10/18/23 08:40 92 Room Air 10/18/23 06:00 97.9 F 77 16 148/59 H 95 10/18/23 04:00 76 10/18/23 00:04 93 10/17/23 22:42 100.5 F H 10/17/23 20:00 118 H 10/17/23 21:00 95 Nasal Cannula 2 10/17/23 21:42 101.7 F H 10/17/23 21:42 117 H 10/17/23 21:27 101.7 F H 10/17/23 21:13 99.5 F 105 H 16 185/75 H 95 10/17/23 16:03 89 10/17/23 18:50 111 H 10/17/23 16:22 191/71 H 10/17/23 16:20 181/60 H 10/17/23 16:00 97.2 F L 90 22 H 182/69 H 98 10/17/23 12:01 84 Intake/Output Intake/Output: Intake & Output 10/15/23 10/16/23 10/17/23 10/18/23 23:59 23:59 23:59 23:59 Intake Total 3040 300 270 630 Output Total 1765 700 375 350 Balance 1275 -400 -105 280 Meds/Results Medications: Active Medications
--- NOTE | 2023-10-18 09:31 | PM.PNNEP ---
Progress Note: A&P Assessment and Plan (1) Hyponatremia: Code(s): E87.1 - Hypo-osmolality and hyponatremia Status: Acute Assessment and Plan: no reported history (but no previous labs to compare to) it is possible he may have a chronic component to his low sodium he does have several risk factors: COPD/emphysema PPI use pain narcotics COVID evaluation to date: TSH okay cortisol acceptable CT of brain unremarkable CT of chest with emphysema no reported history of cancer serum/urine somo and protein electrophresis pending sodium improving if not stable on fluid restriction also intermittently on salt tabs may need to consider low dose lasix but hold this for now follow trend of sodium levels (2) Hypertension: Code(s): I10 - Essential (primary) hypertension Status: Chronic Assessment and Plan: better control at this time however, note issues with syncope on admission midodrine PRN follow trend of hemodynamics (3) Right renal stone: Code(s): N20.0 - Calculus of kidney Status: Acute Assessment and Plan: Urology recommendations noted plan outpatient follow-up (4) COVID: Code(s): U07.1 - COVID-19 Status: Acute Assessment and Plan: postive testing in ER however, remains on room air supportive therapy Not much else to add -- will continue to follow from a distance. Subjective Date/time seen: 10/18/23 09:31 Interval history: Follow-up for acute hyponatremia (presumably). Chart reviewed -- assuming care from Dr. Ellison; continues to voice ongoing abdominal pain localized to the right lower quadrant; otherwise, no apparent distress noted; sodium has remains relatively stable with current interventions/therapy; no issues/events overnight or earlier this morning. Exam Narrative: General: elderly male in NAD Heart: normal S1 and S2; no rub Lungs: clear anteriorly Abdomen: soft, +TTP in RLQ; positive bowel sounds Extremities: no cyanosis or clubbing; no edema Skin: warm and dry Objective Data Vital Signs Vital Signs: Vital Signs Temp Pulse Resp BP Pulse Ox O2 Del Method O2 Flow Rate 10/18/23 08:40 92 Room Air 10/18/23 06:00 97.9 F 77 16 148/59 H 95 10/18/23 04:00 76 10/18/23 00:04 93 10/17/23 22:42 100.5 F H 10/17/23 20:00 118 H 10/17/23 21:00 95 Nasal Cannula 2 10/17/23 21:42 101.7 F H 10/17/23 21:42 117 H 10/17/23 21:27 101.7 F H 10/17/23 21:13 99.5 F 105 H 16 185/75 H 95 10/17/23 16:03 89 10/17/23 18:50 111 H 10/17/23 16:22 191/71 H 10/17/23 16:20 181/60 H 10/17/23 16:00 97.2 F L 90 22 H 182/69 H 98 10/17/23 12:01 84 Intake/Output Intake/Output: Intake & Output 10/15/23 10/16/23 10/17/23 10/18/23 23:59 23:59 23:59 23:59 Intake Total 3040 300 270 630 Output Total 1765 700 375 350 Balance 1275 -400 -105 280 Meds/Results Medications: Active Medications Generic Name Dose Route Start Last Admin Trade Name Freq PRN Reason Stop Dose Admin Acetaminophen 650 mg 10/11/23 23:07 10/17/23 21:42 Acetaminophen 325 Mg Tablet PO 650 mg Q6H PRN Administration Mild Pain (1-3) or Fever Hydrocodone Bitart/Acetaminophen 1 tab 10/13/23 15:48 10/18/23 06:30 Hydrocodone/Acetaminophen (*Crx) 5-325 Mg Tablet PO 1 tab Q6H PRN Administration pain Amlodipine Besylate 10 mg 10/18/23 09:00 Amlodipine Besylate 5 Mg Tablet PO DAILY BISI Benzocaine 1 lozenge 10/12/23 12:38 10/14/23 17:50 Benzocaine/Menthol (*Bkc) 18 Ea Lozenge PO 1 lozenge PRN PRN Administration Sore Throat Benzonatate 200 mg 10/12/23 13:00 10/17/23 18:36 Benzonatate 100 Mg Capsule PO Not Given TID BISI Diltiazem HCl 14 mg 10/13/23 23:49 10/14/23 00:18 Diltiazem Hcl Inj 25 Mg/5 Ml Vial IV
[2023-10-18] MEDS: LOSARTAN POTASSIUM 100 MG TABLET PO (12:13)
[2023-10-18] MEDS: SOTALOL HCL 80 MG TABLET PO ×2 (12:13→21:38)
[2023-10-18] MEDS: MIDODRINE HCL 2.5 MG TABLET 5 MG PO ×2 (12:14→17:22)
[2023-10-18] MEDS: THEOPHYLLINE ANHYDROUS 200 MG ER 24 HR CAPSULE 400 MG PO (12:14)
[2023-10-18] MEDS: GABAPENTIN 400 MG CAPSULE 1200 MG PO (12:14)
[2023-10-18] MEDS: guaiFENesin 600 MG/DEXTROMETHORPHAN 30 MG SR TAB 12 HR 1 TAB PO (12:14)
[2023-10-18] MEDS: amLODIPine BESYLATE 5 MG TABLET 10 MG PO (12:15)
[2023-10-18] MEDS: SODIUM CHLORIDE 1 GM TABLET 2 GM PO ×2 (12:15→17:22)
[2023-10-18] MEDS: TAMSULOSIN HCL 0.4 MG CAPSULE PO (12:15)
[2023-10-18] MEDS: PANTOPRAZOLE 40 MG TABLET PO (12:15)
[2023-10-18] MEDS: BENZONATATE 100 MG CAPSULE 200 MG PO (12:15)
[2023-10-18] MEDS: methocarbamoL 500 MG TABLET PO (12:15)
--- NOTE | 2023-10-18 13:26 | PCPTNOTE ---
Patient refused treatment this session. Patient did not give reason why, other than stating, I had enough therapy for one day. Encouraged patient to participate with PT, patient continued to refuse.
--- NOTE | 2023-10-18 14:14 | PM.IMPN ---
Progress Note: A&P Assessment and Plan (1) Quadriceps muscle rupture: Qualifiers: Encounter type: initial encounter Laterality: left Qualified Code(s): S76.112A - Strain of left quadriceps muscle, fascia and tendon, initial encounter Code(s): S76.119A - Strain of unspecified quadriceps muscle, fascia and tendon, initial encounter Status: Acute (2) Chronic back pain: Code(s): M54.9 - Dorsalgia, unspecified; G89.29 - Other chronic pain Status: Acute (3) Hypertension: Code(s): I10 - Essential (primary) hypertension Status: Acute (4) Osteoarthritis of knees, bilateral: Code(s): M17.0 - Bilateral primary osteoarthritis of knee Status: Acute (5) BPH (benign prostatic hyperplasia): Code(s): N40.0 - Benign prostatic hyperplasia without lower urinary tract symptoms Status: Acute Assessment and Plan: Urine output is adequate. No evidence of retention on prior bladder scans. Started on tamsulosin during admission and will continue. (6) Elevated blood pressure reading: Code(s): R03.0 - Elevated blood-pressure reading, without diagnosis of hypertension Status: Acute (7) COVID: Code(s): U07.1 - COVID-19 Status: Acute (8) Syncope: Code(s): R55 - Syncope and collapse Status: Acute (9) Injury of quadriceps tendon: Code(s): S76.109A - Unspecified injury of unspecified quadriceps muscle, fascia and tendon, initial encounter Status: Acute (10) Generalized weakness: Code(s): R53.1 - Weakness Status: Acute Plan Abdomen pain Patient had rt lower quadrant pain, and patient also had nausea vomiting in the morning 10/15 Patient is afebrile, f/u abd pelvis CT, need to rule out acute intraabdominal issues CT did not revealed acute appendicitis, but found out gallbladder intermediate, need to rule out acute cholecystitis Patient is afebrile over the night, white blood cell 6600, patient still has nausea vomiting severe right lower quadrant pain today 10/16 Consult general surgeon for evaluation treatment Patient still has nausea vomiting, abdominal ultrasounds pending 10/17 afeb wbc wnl Hematuria: ?Code(s): R31.9 - Hematuria, unspecified ?Status:?Acute ?Assessment and Plan: ?10/12/2023: ?patient reporting hematuria with clots on admission ?CT of the abdomen pelvis without contrast showed nonobstructing right renal stone, constipation, BPH ?plan for bladder scan to check for urinary retention?not reporting hematuria at this time Appreciate urologist consultation, plans? CT urogram and cystoscopy as an outpatient. Syncope: ?Code(s): R55 - Syncope and collapse ?Status:?Acute ?Assessment and Plan: 10/12/2023: ?patient reports syncopal episode on Wednesday with fall, he hit his head on the ground without any initial injury ?head CT was negative for any acute intracranial process, only showed age-related changes ?orthostatic blood pressures Q shift ordered ? Blood pressure while lying down was 188/86 with a pulse of 98, pressure while sitting up was 178/101 with a pulse of 96, there was not a blood pressure recorded 4 standing at this time. ?bilateral ultrasound carotid duplex ordered ?echo ordered10/13/23: Bilateral ultrasound carotid duplex showing less 50% stenosis bilaterally possible vasovagal syncope patient states that he feels like the room is spinning at times causing him to lose his orientation resulting in increased falls. Echo showing normal LV systolic function with an estimated EF of 60-65%, grade 1 diastolic dysfunction. Orthostatic hypotension PT and OT ordered Patient still has intermittent lightheadedness.? Patient is found have orthostatic hypotension Will add midodrine 5 mg t.i.d. p.o. Patient declined orthostatic hypotension checking today 10/16 Hyponatremia Sodium is trending down, today 128.? On admission, sodium 135 Unclear etiology Follow-up ur
--- NOTE | 2023-10-18 14:20 | PCOTNOTE ---
Patient refused treatment this session. Patient adamant that he did enough therapy today. Patient stated he would participate tomorrow after breakfast. Note was put on white board to remind patient that he has therapy tomorrow.
--- NOTE | 2023-10-18 16:38 | WPDUROPN2 ---
Progress Note: A&P Assessment and Plan (1) Hematuria: Code(s): R31.9 - Hematuria, unspecified Status: Acute Assessment and Plan: Resolved. Onset 1 day prior to admission. CT abdomen/pelvis without contrast shows 2 mm nonobstructing right renal stone. No evidence of UTI. No recent instrumentation/catheterization. No indication for CBI. Urine has remained clear following transition to Xarelto. Will plan for CT urogram and cystoscopy as an outpatient. Urology will sign off at this time, please call with questions (2) BPH (benign prostatic hyperplasia): Code(s): N40.0 - Benign prostatic hyperplasia without lower urinary tract symptoms Status: Acute Assessment and Plan: PVR has been low, <200. He is voiding well following addition of tamsulosin which he will continue (3) Right renal stone: Code(s): N20.0 - Calculus of kidney Status: Acute Assessment and Plan: 2 mm nonobstructing right renal stone without hydronephrosis. No indication for intervention. Annual surveillance with [facility]. Subjective Subjective Date/Time Seen: 10/18/23 16:38 Interval history: Complaining of abdominal pain today. Reports he is voiding without difficulty. Urine remains clear. No concerns for retention. Review of Systems Review of Systems: All systems reviewed & are unremarkable except as noted in HPI and below Exam Narrative: General: Awake, alert, comfortable, no acute distress HEENT: Normocephalic, atraumatic, sclerae anicteric, hard of hearing Respiratory: Normal respiratory effort, no accessory muscle use Abdomen: soft, nondistended Skin: Normal coloration, warm and dry Neurologic: No focal neuro deficits noted Psychiatric: Appropriate mood and affect, judgment and insight intact Objective Data Vital Signs Vital Signs: Vital Signs - 24 hr 10/17/23 18:50 10/17/23 21:13 10/17/23 21:27 Temperature 99.5 F 101.7 F H Pulse Rate 111 H 105 H Respiratory Rate 16 Blood Pressure 185/75 H Pulse Oximetry 95 Oxygen Delivery Oxygen Flow Rate 10/17/23 21:42 10/17/23 21:42 10/17/23 21:00 Temperature 101.7 F H Pulse Rate 117 H Respiratory Rate Blood Pressure Pulse Oximetry 95 Oxygen Delivery Nasal Cannula Oxygen Flow Rate 2 10/17/23 20:00 10/17/23 22:42 10/18/23 00:04 Temperature 100.5 F H Pulse Rate 118 H 93 Respiratory Rate Blood Pressure Pulse Oximetry Oxygen Delivery Oxygen Flow Rate 10/18/23 04:00 10/18/23 06:00 10/18/23 08:40 Temperature 97.9 F Pulse Rate 76 77 Respiratory Rate 16 Blood Pressure 148/59 H Pulse Oximetry 95 92 Oxygen Delivery Room Air Oxygen Flow Rate 10/18/23 12:13 10/18/23 14:00 10/18/23 08:00 Temperature 98.3 F Pulse Rate 76 60 70 Respiratory Rate 14 Blood Pressure 124/52 L Pulse Oximetry 90 Oxygen Delivery Oxygen Flow Rate 10/18/23 08:00 Temperature Pulse Rate Respiratory Rate Blood Pressure Pulse Oximetry Oxygen Delivery Room Air Oxygen Flow Rate Intake/Output Intake/Output: Intake & Output 10/15/23 10/16/23 10/17/23 10/18/23 23:59 23:59 23:59 23:59 Intake Total 3040 300 270 680 Output Total 1765 700 375 550 Balance 1275 -400 -105 130 Meds/Results Medications: Active Medications Generic Name Dose Route Start Last Admin Trade Name Freq PRN Reason Stop Dose Admin Acetaminophen 650 mg 10/11/23 23:07 10/17/23 21:42 Acetaminophen 325 Mg Tablet PO 650 mg Q6H PRN Administration Mild Pain (1-3) or Fever Hydrocodone Bitart/Acetaminophen 1 tab 10/13/23 15:48 10/18/23 12:43 Hydrocodone/Acetaminophen (*Crx) 5-325 Mg Tablet PO 1 tab Q6H PRN Administration pain Amlodipine Besylate 10 mg 10/18/23 09:00 10/18/23 12:15 Amlodipine Besylate 5 Mg Tablet PO 10 mg DAILY BISI Administration Benzocaine 1 lozenge 10/12/23 12:38 10/14/23 17:50 Benzocaine/Menthol (*B
[2023-10-18] MEDS: GABAPENTIN 400 MG CAPSULE 800 MG PO (17:22)
[2023-10-19] VITALS (16 sets, daily range): BP systolic 110–151; BP diastolic 48–76; PULSE 68–88; RESP 17–20; TEMP 36.7–37.3; O2SAT 90–94
[2023-10-19] MEDS: ENOXAPARIN 60 MG/0.6 ML SYRINGE 56 MG SUB-Q ×2 (01:31→12:29)
[2023-10-19 05:48] LABS: Basophils Percent Auto 0.3 % (0.2-1.2); Hematocrit 43.2 % (42.0-52.0); Hemoglobin 14.2 g/dL (14.0-18.0); Immature Granulocyte Absolute 0.15 K/mm3 (0.00-0.031); Immature Granulocyte Percent A 2.2 % (0-0.5); Lymphocytes Absolute Auto 0.85 K/mm3 (0.9-3.2); Lymphocytes Percent Auto 12.4 % (18.3-44.2); Mean Corpuscular HGB Conc 32.9 g/dl (32-36); Mean Corpuscular Hemoglobin 29.4 pg (26-34); Mean Corpuscular Volume 89.4 fl (80-100); Mean Platelet Volume 11.3 fl (7.4-10.4); Monocytes Absolute Auto 0.5 K/mm3 (0.1-0.6); Monocytes Percent Auto 6.7 % (2.6-8.5); Neutrophils Absolute Auto 5.4 K/mm3 (1.3-6.7); Neutrophils Percent Auto 78.4 % (45.5-73.1); Platelet Count Result 226 k/mm3 (150-375); Red Blood Count 4.83 M/mm3 (4.6-6.20); Red Cell Distribution Width 15.5 % (11.5-14.5); White Blood Count 6.9 K/mm3 (4.5-10.0)
[2023-10-19 06:04] LABS: Alanine Aminotransferase 47 U/L (6-50); Albumin Level 2.8 g/dL (3.5-5.1); Alkaline Phosphatase 89 U/L (38-126); Anion Gap 8 mmol/L (4-12); Aspartate Amino Transferase 51 U/L (17-59); Bilirubin,Total 0.6 mg/dL (0.2-1.3); Blood Urea Nitrogen 18 mg/dL (9-20); Calcium 8.1 mg/dL (8.4-10.2); Carbon Dioxide 22 mmol/L (22-30); Chloride 102 mmol/L (98-107); Estimated CRCL calculation 78 ml/min; Estimated Glomerular Filt Rate > 60; Glucose 101 mg/dL (65-110); Potassium 3.4 mmol/L (3.4-5.0); Sodium 132 mmol/L (137-145)
--- NOTE | 2023-10-19 07:45 | PM.PNCARD ---
Progress Note: A&P Assessment and Plan (1) Hypertension: Code(s): I10 - Essential (primary) hypertension Status: Acute Assessment and Plan: Improved. Probably exacerbated by pain. On Metoprolol Succinate 100 mg daily. On Losartan and Amlodipine. Hydralazine IV prn. Stopped Metoprolol to start Sotalol. On Losartan 100 mg daily. Continue to monitor. (2) Tobacco dependence: Code(s): F17.200 - Nicotine dependence, unspecified, uncomplicated Status: Chronic Assessment and Plan: Counseled regarding smoking cessation. (3) COVID: Code(s): U07.1 - COVID-19 Status: Acute Assessment and Plan: Managed by hospitalist. (4) PAF (paroxysmal atrial fibrillation): Code(s): I48.0 - Paroxysmal atrial fibrillation Status: Acute Assessment and Plan: Back in sinus rhythm and without recurrence with Sotalol. Probably due to covid infection, COPD. [id number] 5. On Metoprolol now for it. Would benefit from anticoagulation if not having any bleeding. On Lovenox currently. 10/12/23 Echo: EF 60-65%, mild LVH, grade I diastolic dysfunction, mild biatrial enlargement, mild TR. Keep on telemetry to check for recurrence. Had transient recurrence of atrial fib on 10/15/23. Stopped Metoprolol. 10/18/23 Start Sotalol 80 mg every 12 hours for recurrent atrial fibrillation. Check QT interval 1-2 hours post each dose of Sotalol. Upon discharge recommend changing Lovenox to Xarelto 20 mg in evening with a meal. Subjective Date/time seen: 10/19/23 07:45 Interval history: Denies chest pain or sob. Reports right lower abdominal pain especially with coughing. Exam Const: General: cooperative, healthy appearing and comfortable Orientation/consciousness: oriented to person, oriented to place and oriented to time Resp: Auscultation: clear to auscultation bilaterally, no crackles, no rales, no rhonchi and no wheezes Cardio: Rate: regular rate Rhythm: regular rhythm Heart sounds: no murmurs Peripheral pulses: dorsalis pedis present Neuro: General: oriented to person, oriented to place and oriented to time Extrem: Right lower extremity: no edema Left lower extremity: no edema Objective Data Vital Signs Vital Signs: Vital Signs - 24 hr 10/18/23 08:40 04/01/24 12:13 10/18/23 14:00 Temperature 98.3 F Pulse Rate 76 60 Respiratory Rate 14 Blood Pressure 124/52 L Pulse Oximetry 92 90 Oxygen Delivery Room Air 10/18/23 08:00 10/18/23 08:00 10/18/23 12:00 Temperature Pulse Rate 70 70 Respiratory Rate Blood Pressure Pulse Oximetry Oxygen Delivery Room Air 10/18/23 16:00 10/18/23 21:19 10/18/23 21:38 Temperature 97.7 F Pulse Rate 66 80 82 Respiratory Rate 17 Blood Pressure 143/58 H Pulse Oximetry 91 Oxygen Delivery 10/18/23 20:00 10/18/23 21:45 10/19/23 00:00 Temperature Pulse Rate 82 68 Respiratory Rate Blood Pressure Pulse Oximetry Oxygen Delivery Room Air 10/19/23 05:19 10/19/23 04:00 Temperature 98.6 F Pulse Rate 77 74 Respiratory Rate 17 Blood Pressure 138/76 Pulse Oximetry 91 Oxygen Delivery Intake/Output Intake/Output: Intake & Output 10/16/23 10/17/23 10/18/23 10/19/23 23:59 23:59 23:59 23:59 Intake Total 300 270 920 280 Output Total 700 375 965 200 Balance -400 -105 -45 80 Meds/Results Medications: Active Medications Generic Name Dose Route Start Last Admin Trade Name Freq PRN Reason Stop Dose Admin Acetaminophen 650 mg 10/11/23 23:07 10/17/23 21:42 Acetaminophen 325 Mg Tablet PO 650 mg Q6H PRN Administration Mild Pain (1-3) or Fever Hydrocodone Bitart/Acetaminophen 1 tab 10/13/23 15:48 10/18/23 21:43 Hydrocodone/Acetaminophen (*Crx) 5-325 Mg Tablet PO 1 tab Q6H PRN Administration pain Amlodipine Besylate 10 mg 10/18/23 09:00 10/18/23 12:15 Amlodipine Besylate 5 Mg Tablet PO 10 mg DAILY BISI Administration Benzocai
--- NOTE | 2023-10-19 08:28 | PM.IMPN ---
Progress Note: A&P Assessment and Plan (1) Atrial fibrillation with rapid ventricular response: Code(s): I48.91 - Unspecified atrial fibrillation Status: Acute (2) Abdominal pain, RLQ: Code(s): R10.31 - Right lower quadrant pain Status: Acute (3) Vomiting: Qualifiers: Nausea presence: with nausea Vomiting type: bilious vomiting Qualified Code(s): R11.14 - Bilious vomiting Code(s): R11.10 - Vomiting, unspecified Status: Acute Plan AFib RVR Patient found have AFib RVR on October 12 No history of AFib EKG shows ST depression Received Cardizem push and therapeutic dose Lovenox q.12 hour f/u echo, tsh, Consulted literary writer, follow up recommendations 10/14:? Now patient has sinus rhythm, patient is on metoprolol 25 mg q.12 hours p.o., xeralto 20 mg daily p.o. 10/17 Changed to sotalol p.o. per literary writer Abdomen pain Patient had rt lower quadrant pain, and patient also had nausea vomiting in the morning 10/15 Patient is afebrile, f/u abd pelvis CT, need to rule out acute intraabdominal issues CT did not revealed acute appendicitis, but found out gallbladder care home, need to rule out acute cholecystitis Patient is afebrile over the night, white blood cell 6600, patient still has nausea vomiting severe right lower quadrant pain today 10/16 Consult general surgeon for evaluation treatment Patient still has nausea vomiting, abdominal ultrasounds pending 10/17 afeb wbc wnl US is penidng 10/18: Nausea vomiting have resolved, right lower quadrant pain is improving, abdomen is soft ?Hematuria: ?Code(s): R31.9 - Hematuria, unspecified ?Status:?Acute ?Assessment and Plan: ?10/12/2023: ?patient reporting hematuria with clots on admission ?CT of the abdomen pelvis without contrast showed nonobstructing right renal stone, constipation, BPH ?plan for bladder scan to check for urinary retention?not reporting hematuria at this timeAppreciate urologist consultation, plans? CT urogram and cystoscopy as an outpatient. ?Syncope: ?Code(s): R55 - Syncope and collapse ?Status:?Acute ?Assessment and Plan: 10/12/2023: ?patient reports syncopal episode on Wednesday with fall, he hit his head on the ground without any initial injury ?head CT was negative for any acute intracranial process, only showed age-related changes ?orthostatic blood pressures Q shift ordered ? Blood pressure while lying down was 188/86 with a pulse of 98, pressure while sitting up was 178/101 with a pulse of 96, there was not a blood pressure recorded 4 standing at this time. ?bilateral ultrasound carotid duplex ordered ?echo ordered10/13/23: Bilateral ultrasound carotid duplex showing less 50% stenosis bilaterally possible vasovagal syncope patient states that he feels like the room is spinning at times causing him to lose his orientation resulting in increased falls. Echo showing normal LV systolic function with an estimated EF of 60-65%, grade 1 diastolic dysfunction. Orthostatic hypotension PT and OT ordered Patient still has intermittent lightheadedness.? Patient is found have orthostatic hypotension Will add midodrine 5 mg t.i.d. p.o. Patient declined orthostatic hypotension checking today 10/16 Hyponatremia Sodium is trending down, today 128.? On admission, sodium 135 Unclear etiology Follow-up urine osmolarity, serum osmolarity, urine sodium level Sodium 2 g b.i.d. p.o. Consult back line cook for evaluation treatment,? appreciate back line cook consultation ?COVID: ?Code(s): U07.1 - COVID-19 ?Status:?Acute ?Assessment and Plan: 10/12/2023: ?positive for COVID on PCR ?reporting upper respiratory symptoms of productive cough, fever, body aches, fatigue, sore throat, lightheadedness, dizziness ?strep was negative ?influenza A and B, RSV were also negative ? Currently on room air ?start Mucinex,? throat lozenge, and Tessalon Perles for supportive measurenow Minimal sy
[2023-10-19] MEDS: amLODIPine BESYLATE 5 MG TABLET 10 MG PO (10:00)
[2023-10-19] MEDS: PANTOPRAZOLE 40 MG TABLET PO (10:01)
[2023-10-19] MEDS: GABAPENTIN 400 MG CAPSULE 800 MG PO ×3 (10:01→17:11)
[2023-10-19] MEDS: SODIUM CHLORIDE 1 GM TABLET 2 GM PO ×2 (10:02→17:10)
[2023-10-19] MEDS: TAMSULOSIN HCL 0.4 MG CAPSULE PO (10:02)
[2023-10-19] MEDS: LOSARTAN POTASSIUM 100 MG TABLET PO (10:05)
[2023-10-19] MEDS: SOTALOL HCL 80 MG TABLET PO ×2 (10:05→21:48)
--- NOTE | 2023-10-19 11:14 | PCOTNOTE ---
Patient refused treatment this session. Patient stated he was having stomach issues all morning and will not be doing therapy today. Patient was encouraged and education again on the benefits of participating in therapy.
[2023-10-19] MEDS: HYDROcodone/acetaminophen (*CRX) 5-325 MG TABLET 1 TAB PO ×2 (12:35→21:49)
[2023-10-20] VITALS (10 sets, daily range): BP systolic 103–125; BP diastolic 54–74; PULSE 58–68; RESP 18; TEMP 37.1; O2SAT 83–92
[2023-10-20] MEDS: ENOXAPARIN 60 MG/0.6 ML SYRINGE 56 MG SUB-Q (00:05)
[2023-10-20 05:24] LABS: Basophils Absolute Auto 0.1 K/mm3 (0.0-0.1); Basophils Percent Auto 0.8 % (0.2-1.2); Hematocrit 41.5 % (42.0-52.0); Hemoglobin 13.6 g/dL (14.0-18.0); Immature Granulocyte Absolute 0.38 K/mm3 (0.00-0.031); Immature Granulocyte Percent A 4.4 % (0-0.5); Lymphocytes Absolute Auto 1.42 K/mm3 (0.9-3.2); Lymphocytes Percent Auto 16.5 % (18.3-44.2); Mean Corpuscular HGB Conc 32.8 g/dl (32-36); Mean Corpuscular Volume 88.5 fl (80-100); Mean Platelet Volume 11.6 fl (7.4-10.4); Monocytes Absolute Auto 0.5 K/mm3 (0.1-0.6); Monocytes Percent Auto 5.8 % (2.6-8.5); Neutrophils Absolute Auto 6.2 K/mm3 (1.3-6.7); Neutrophils Percent Auto 72.5 % (45.5-73.1); Platelet Count Result 264 k/mm3 (150-375); Red Blood Count 4.69 M/mm3 (4.6-6.20); Red Cell Distribution Width 15.7 % (11.5-14.5); White Blood Count 8.6 K/mm3 (4.5-10.0)
[2023-10-20 05:36] LABS: Alanine Aminotransferase 41 U/L (6-50); Albumin Level 2.7 g/dL (3.5-5.1); Alkaline Phosphatase 93 U/L (38-126); Anion Gap 3 mmol/L (4-12); Aspartate Amino Transferase 41 U/L (17-59); Bilirubin,Total 0.5 mg/dL (0.2-1.3); Blood Urea Nitrogen 25 mg/dL (9-20); Calcium 7.9 mg/dL (8.4-10.2); Carbon Dioxide 25 mmol/L (22-30); Chloride 103 mmol/L (98-107); Estimated CRCL calculation 60 ml/min; Estimated Glomerular Filt Rate > 60; Glucose 106 mg/dL (65-110); Potassium 3.3 mmol/L (3.4-5.0); Sodium 131 mmol/L (137-145)
--- NOTE | 2023-10-20 07:07 | ECG_ITS ---
Measurements Intervals [place] Rate: 68 P: 59 SD: 118 QRS: 69 QRSD: 101 T: 8 QT: 383 QTc: 409 Interpretive Statements SINUS RHYTHM WITH SHORT SD INTERVAL INCOMPLETE RIGHT BUNDLE BRANCH BLOCK NONSPECIFIC T-WAVE ABNORMALITY BORDERLINE ECG COMPARED TO ECG 10/18/2023 13:27:05 INCOMPLETE RIGHT BUNDLE-BRANCH BLOCK NOW PRESENT T-WAVE ABNORMALITY NOW PRESENT Electronically Signed On 10-20-2023 14:34:25 CDT by Hi Turpin M.D.
--- NOTE | 2023-10-20 07:42 | PM.PNCARD ---
Progress Note: A&P Assessment and Plan (1) Hypertension: Code(s): I10 - Essential (primary) hypertension Status: Chronic Assessment and Plan: Normal to low normal now. Probably exacerbated by pain. On Losartan and Amlodipine. Stop Amlodipine. Continue to monitor. (2) Tobacco dependence: Code(s): F17.200 - Nicotine dependence, unspecified, uncomplicated Status: Chronic Assessment and Plan: Counseled regarding smoking cessation. (3) COVID: Code(s): U07.1 - COVID-19 Status: Acute Assessment and Plan: Managed by hospitalist. (4) PAF (paroxysmal atrial fibrillation): Code(s): I48.0 - Paroxysmal atrial fibrillation Status: Acute Assessment and Plan: Back in sinus rhythm and without recurrence with Sotalol. Probably due to covid infection, COPD. [id number] 5. On Metoprolol now for it. Would benefit from anticoagulation if not having any bleeding. On Lovenox currently. 10/12/23 Echo: EF 60-65%, mild LVH, grade I diastolic dysfunction, mild biatrial enlargement, mild TR. Keep on telemetry to check for recurrence. Had transient recurrence of atrial fib on 10/15/23. Stopped Metoprolol. 10/18/23 Start Sotalol 80 mg every 12 hours for recurrent atrial fibrillation. Check QT interval 1-2 hours post each dose of Sotalol. Check EKG. Upon discharge recommend changing Lovenox to Xarelto 20 mg in evening with a meal. Subjective Date/time seen: 10/20/23 07:42 Interval history: Denies chest pain or sob. Reports mild right lower abdominal pain especially with coughing. Exam Const: General: cooperative, healthy appearing and comfortable Orientation/consciousness: oriented to person, oriented to place and oriented to time Resp: Auscultation: clear to auscultation bilaterally, no crackles, no rales, no rhonchi and no wheezes Cardio: Rate: regular rate Rhythm: regular rhythm Heart sounds: no murmurs Peripheral pulses: dorsalis pedis present Neuro: General: oriented to person, oriented to place and oriented to time Extrem: Right lower extremity: no edema Left lower extremity: no edema Objective Data Vital Signs Vital Signs: Vital Signs - 24 hr 10/19/23 09:57 10/19/23 10:05 10/19/23 10:00 Temperature Pulse Rate 88 88 Respiratory Rate Blood Pressure 143/54 H Pulse Oximetry 91 Oxygen Delivery Room Air Oxygen Flow Rate 10/19/23 08:00 10/19/23 12:28 10/19/23 12:29 Temperature 98.0 F Pulse Rate 76 79 85 Respiratory Rate Blood Pressure 151/48 H 142/54 H Pulse Oximetry 92 90 Oxygen Delivery Oxygen Flow Rate 10/19/23 12:30 10/19/23 12:00 10/19/23 14:00 Temperature 99.2 F Pulse Rate 87 80 71 Respiratory Rate 20 Blood Pressure 138/49 L 122/56 L Pulse Oximetry 92 94 Oxygen Delivery Oxygen Flow Rate 10/19/23 17:09 10/19/23 16:00 10/19/23 21:19 Temperature 98.7 F Pulse Rate 68 70 73 Respiratory Rate 20 Blood Pressure 122/51 L 110/48 L Pulse Oximetry 92 92 Oxygen Delivery Oxygen Flow Rate 10/19/23 21:48 10/19/23 21:19 10/19/23 20:00 Temperature Pulse Rate 77 73 Respiratory Rate Blood Pressure Pulse Oximetry 92 Oxygen Delivery Nasal Cannula Oxygen Flow Rate 1.5 10/20/23 00:00 10/20/23 04:00 10/20/23 05:33 Temperature 98.8 F Pulse Rate 60 58 L 68 Respiratory Rate 18 Blood Pressure 103/74 Pulse Oximetry 90 Oxygen Delivery Oxygen Flow Rate 10/20/23 05:25 10/20/23 05:30 Temperature Pulse Rate Respiratory Rate Blood Pressure 103/74 125/54 L Pulse Oximetry Oxygen Delivery Oxygen Flow Rate Intake/Output Intake/Output: Intake & Output 10/17/23 10/18/23 10/19/23 10/20/23 23:59 23:59 23:59 23:59 Intake Total 497 327 4529 390 Output Total 375 965 300 Balance -105 -45 1030 390 Meds/Results Medications: Active Medications Generic Name Dose Route Start Last Admin Trade Name Freq PRN Reason Stop Dose A
--- NOTE | 2023-10-20 07:52 | PM.IMPN ---
Progress Note: A&P Assessment and Plan (1) Atrial fibrillation with rapid ventricular response: Code(s): I48.91 - Unspecified atrial fibrillation Status: Acute (2) Abdominal pain, RLQ: Code(s): R10.31 - Right lower quadrant pain Status: Acute (3) Vomiting: Qualifiers: Nausea presence: with nausea Vomiting type: bilious vomiting Qualified Code(s): R11.14 - Bilious vomiting Code(s): R11.10 - Vomiting, unspecified Status: Acute Plan AFib RVR Patient found have AFib RVR on October 12 No history of AFib EKG shows ST depression Received Cardizem push and therapeutic dose Lovenox q.12 hour f/u echo, tsh, Consulted plastics heat welder, follow up recommendations 10/14:? Now patient has sinus rhythm, patient is on metoprolol 25 mg q.12 hours p.o., xeralto 20 mg daily p.o. 10/17 Changed to sotalol p.o. per plastics heat welder Abdomen pain Patient had rt lower quadrant pain, and patient also had nausea vomiting in the morning 10/15 Patient is afebrile, f/u abd pelvis CT, need to rule out acute intraabdominal issues CT did not revealed acute appendicitis, but found out gallbladder senior living, need to rule out acute cholecystitis Patient is afebrile over the night, white blood cell 6600, patient still has nausea vomiting severe right lower quadrant pain today 10/16 Consult general surgeon for evaluation treatment Patient still has nausea vomiting, abdominal ultrasounds pending 10/17 afeb wbc wnl US is penidng 10/18: Nausea vomiting have resolved, right lower quadrant pain is improving, abdomen is soft ?Hematuria: ?Code(s): R31.9 - Hematuria, unspecified ?Status:?Acute ?Assessment and Plan: ?10/12/2023: ?patient reporting hematuria with clots on admission ?CT of the abdomen pelvis without contrast showed nonobstructing right renal stone, constipation, BPH ?plan for bladder scan to check for urinary retention?not reporting hematuria at this timeAppreciate urologist consultation, plans? CT urogram and cystoscopy as an outpatient. ?Syncope: ?Code(s): R55 - Syncope and collapse ?Status:?Acute ?Assessment and Plan: 10/12/2023: ?patient reports syncopal episode on Wednesday with fall, he hit his head on the ground without any initial injury ?head CT was negative for any acute intracranial process, only showed age-related changes ?orthostatic blood pressures Q shift ordered ? Blood pressure while lying down was 188/86 with a pulse of 98, pressure while sitting up was 178/101 with a pulse of 96, there was not a blood pressure recorded 4 standing at this time. ?bilateral ultrasound carotid duplex ordered ?echo ordered10/13/23: Bilateral ultrasound carotid duplex showing less 50% stenosis bilaterally possible vasovagal syncope patient states that he feels like the room is spinning at times causing him to lose his orientation resulting in increased falls. Echo showing normal LV systolic function with an estimated EF of 60-65%, grade 1 diastolic dysfunction. Orthostatic hypotension PT and OT ordered Patient still has intermittent lightheadedness.? Patient is found have orthostatic hypotension Will add midodrine 5 mg t.i.d. p.o. Patient declined orthostatic hypotension checking today 10/16 Hyponatremia Multiple etiologies, possible SIADH due to COVID infection, ordered urine osmolarity, serum osmolarity, urine sodium level Sodium 2 g b.i.d. p.o. Consult upper stitcher for evaluation treatment,? appreciate upper stitcher consultation improves ?COVID: ?Code(s): U07.1 - COVID-19 ?Status:?Acute ?Assessment and Plan: 10/12/2023: ?positive for COVID on PCR ?reporting upper respiratory symptoms of productive cough, fever, body aches, fatigue, sore throat, lightheadedness, dizziness ?strep was negative ?influenza A and B, RSV were also negative ? Currently on room air ?start Mucinex,? throat lozenge, and Tessalon Perles for supportive measurenow Minimal symptoms.? No
[2023-10-20] MEDS: GABAPENTIN 400 MG CAPSULE 800 MG PO ×2 (09:32→12:41)
[2023-10-20] MEDS: SOTALOL HCL 80 MG TABLET PO (09:32)
[2023-10-20] MEDS: MIDODRINE HCL 2.5 MG TABLET 5 MG PO ×2 (09:33→12:41)
[2023-10-20] MEDS: LOSARTAN POTASSIUM 100 MG TABLET PO (09:33)
[2023-10-20] MEDS: TAMSULOSIN HCL 0.4 MG CAPSULE PO (09:33)
[2023-10-20] MEDS: SODIUM CHLORIDE 1 GM TABLET 2 GM PO (09:34)
[2023-10-20] MEDS: PANTOPRAZOLE 40 MG TABLET PO (09:34)
[2023-10-20] MEDS: HYDROcodone/acetaminophen (*CRX) 5-325 MG TABLET 1 TAB PO (09:36)
--- NOTE | 2023-10-20 10:15 | PM.DS ---
DS: Admitting Diagnosis Discharge Date 10/19 Admitting Diagnosis (1) Atrial fibrillation with rapid ventricular response: ?Code(s): I48.91 - Unspecified atrial fibrillation ?Status:?Acute (2) Abdominal pain, RLQ: ?Code(s): R10.31 - Right lower quadrant pain ?Status:?Acute (3) Vomiting: ?Qualifiers: ?Nausea presence:?with nausea??Vomiting type:?bilious vomiting? Qualified Code(s):?R11.14 - Bilious vomiting ?Code(s): R11.10 - Vomiting, unspecified ?Status:?Acute DS: Discharge Diagnosis Discharge Diagnosis (1) Atrial fibrillation with rapid ventricular response: Code(s): I48.91 - Unspecified atrial fibrillation Status: Acute (2) Abdominal pain, RLQ: Code(s): R10.31 - Right lower quadrant pain Status: Acute (3) Vomiting: Qualifiers: Vomiting type: bilious vomiting Nausea presence: with nausea Qualified Code(s): R11.14 - Bilious vomiting Code(s): R11.10 - Vomiting, unspecified Status: Acute DS: Summary Hospital Course Hospital Course: This is a 77-year-old male smoker who presented to the emergency department for evaluation of weakness, sore throat, and left leg pain. The patient provides the following history. On Wednesday he reports feeling lightheaded and dizzy which caused him to have a syncopal episode. He landed on his left side and hit his head on the ground without initial injuries. He was able to crawl to bed and where he has remained. Not long after the fall he developed pain in his left knee and he is having difficulties bearing weight on that leg due to pain. Overall he feels unwell with sore throat, cough productive of clear phlegm, body aches, fatigue, and generalized malaise. Additionally he reports painless hematuria but he started to pass small amounts of clots today. He has not had a fever to his knowledge. He denies headache, neck ache, sinus congestion, chest pain, pleuritic pain, hemoptysis, abdominal pain, nausea, vomiting, diarrhea, and dysuria. In the ED: Temperature has been as high as 102.3?. Blood pressures have been running high, in the 160s to 180 systolic. SpO2 has been in the mid 90s on room air. Labs were significant for WBC count of 8.4, hemoglobin 15.7, sodium 135, BUN 20, creatinine 0.60. Urine was positive for 1+ protein, 2+ blood, 51 to 100 WBC. He tested positive for SARS-CoV-[address] showed no acute findings. CT of the abdomen pelvis showed nonobstructing right nephrolithiasis and findings of constipation and prostatomegaly. Right knee x-ray showed moderate to severe tricompartment osteoarthritis. Left knee CT showed chondrocalcinosis, mild tricompartmental osteoarthritis, and an abnormal contour are to the distal quadriceps muscle and tendon which suggest possible quadriceps tear. He is being admitted in this setting The following medical issues have been addressed during hospitalization AFib RVR Patient found have AFib RVR on October 12 No history of AFib EKG shows ST depression Received Cardizem push and therapeutic dose Lovenox q.12 hour f/u echo, tsh, Consulted manufacturing maintenance technician, follow up recommendations 10/14:? Now patient has sinus rhythm, patient is on metoprolol 25 mg q.12 hours p.o., xeralto 20 mg daily p.o. 10/17 Changed to sotalol p.o. per manufacturing maintenance technician 10/19 no afib since on sotalol. Abdomen pain Patient had rt lower quadrant pain, and patient also had nausea vomiting in the morning 10/15 Patient is afebrile, f/u abd pelvis CT, need to rule out acute intraabdominal issues CT did not revealed acute appendicitis, but found out gallbladder residential, need to rule out acute cholecystitis Patient is afebrile over the night, white blood cell 6600, patient still has nausea vomiting severe right lower quadrant pain today 10/16 Consult general surgeon for evaluation treatment Patient still has nausea vomiting, abdominal ultrasounds pending 10/17 afeb wbc wnl US is penidng 10/18: Nausea vomiting have resolved,
[2023-10-20 12:29] LABS: Osmolality, Urine 560 mOsm/kg (50-1200)
== END 2023-10-20 14:40 | DRG 178 ==
LOC: ANHED 14:37 → ANH3MEDSUR 18:01 → ANH2MED 10-12 01:35
PROVIDERS: Internal Medicine Cardiovascular Disease; Internal Medicine Nephrology; Nurse Practitioner Acute Care; Physician Assistant; Admitting Provider Internal Medicine; Emergency Provider Emergency Medicine; Visit Provider Hospitalist
DX: U07.1 COVID-19 (principal); E87.1 Hypo-osmolality and hyponatremia; R31.0 Gross hematuria; N40.0 Benign prostatic hyperplasia without lower urinary tract symptoms; I95.1 Orthostatic hypotension; N20.0 Calculus of kidney; M17.0 Bilateral primary osteoarthritis of knee; I49.3 Ventricular premature depolarization; I48.0 Paroxysmal atrial fibrillation; M54.9 Dorsalgia, unspecified; G89.29 Other chronic pain; I10 Essential (primary) hypertension; F17.210 Nicotine dependence, cigarettes, uncomplicated; K59.00 Constipation, unspecified; S76.112A Strain of left quadriceps muscle, fascia and tendon, initial encounter; W18.39XA Other fall on same level, initial encounter; Z79.01 Long term (current) use of anticoagulants
CPT/HCPCS: 36415; 70450; 71250; 72100; 73562; 73700; 74176; 76705; 80048; 80053; 81001; 82533; 82550; 83735; 83930; 83935; 84300; 84443; 84540; 84550; 85025; 87040; 87637; 87651; 93005; 93306; 93880; 96374; 96375; 96376; 97110; 97161; 97166; 97530; 97535; 99285; A9270; G0378; J0360; J1650; J1885; J2405; J3480; L1830